=== PATIENT | female | born 1950 | race American Indian/Alaskan Native ===

== ENCOUNTER 2016-07-09 12:30 | Emergency (ER) | payer MEDICARE ==
[2016-07-09 12:56] VITALS: BP 157/78
[2016-07-09 13:13] LABS: Basophils % (Auto) 0.9 % (0.0-1.8); Eosinophils % (Auto) 3.6 % (0.0-4.3); Hematocrit 36.5 % (30.3-42.9); Hemoglobin 11.7 gm/dl (10.1-14.3); Mean Corpuscular HGB Conc 32 % (30-34); Mean Corpuscular Hemoglobin 29 pg (28-32); Mean Corpuscular Volume 90 fl (79-97); Platelet Count 116 K/mm3 (140-440); Red Blood Count 4.05 M/mm3 (3.65-5.03); Red Cell Distribution Width 18.7 % (13.2-15.2); White Blood Count 6.4 K/mm3 (4.5-11.0)
[2016-07-09 13:29] LABS: Albumin 4.2 g/dL (3.9-5); Albumin/Globulin Ratio 1.6 %; BUN/Creatinine Ratio 5.2; Bilirubin,Total 0.3 mg/dL (0.1-1.2); Calcium 9.7 mg/dL (8.4-10.2); Chloride 97.7 mmol/L (98-107); Total Protein 6.8 g/dL (6.3-8.2)
--- NOTE | 2016-07-11 16:46 | ED Elopement Review ---
ED Pt Elopement review - Results review Lab results: Laboratory Tests 07/09/16 07/09/16 07/09/16 12:57 13:00 13:00 WBC 6.4 RBC 4.05 Hgb 11.7 Hct 36.5 MCV 90 MCH 29 MCHC 32 RDW 18.7 H Plt Count 116 L Lymph % (Auto) 16.3 [place] % (Auto) 5.6 Eos % (Auto) 3.6 Baso % (Auto) 0.9 Lymph # 1.0 L [place] # 0.4 Eos # 0.2 Baso # 0.1 Seg Neutrophils % 73.6 H Seg Neutrophils # 4.7 Sodium 139 Potassium 4.0 Chloride 97.7 L Carbon Dioxide 27 Anion Gap 18 BUN 26 H Creatinine 5.0 H Estimated GFR 11 BUN/Creatinine Ratio 5.20 Glucose 115 H POC Glucose 100 Calcium 9.7 Total Bilirubin 0.30 AST 11 ALT 8 Alkaline Phosphatase 82 Total Protein 6.8 Albumin 4.2 Albumin/Globulin Ratio 1.6 Lipase 85 H - Call Back decision Pt Call Back Decision: No action required
== END 2016-07-09 20:43 | disposition left against medical advice (07) ==
LOC: ED 12:30
DX: R19.7 Diarrhea, unspecified (principal); R11.11 Vomiting without nausea; Z53.21 Procedure and treatment not carried out due to patient leaving prior to being seen by health care provider
CPT/HCPCS: 36415; 80053; 82962; 83690; 85025

== ENCOUNTER 2016-07-10 08:18 | Emergency (ER) | payer MEDICARE ==
[2016-07-10 08:47] VITALS: BP 138/69
[2016-07-10 09:25] LABS: Basophils % (Auto) 0.6 % (0.0-1.8); Eosinophils % (Auto) 6.5 % (0.0-4.3); Hemoglobin 12.1 gm/dl (10.1-14.3); Mean Corpuscular HGB Conc 32 % (30-34); Mean Corpuscular Hemoglobin 29 pg (28-32); Mean Corpuscular Volume 91 fl (79-97); Platelet Count 119 K/mm3 (140-440); Red Cell Distribution Width 18.7 % (13.2-15.2); White Blood Count 5.5 K/mm3 (4.5-11.0)
[2016-07-10 09:41] LABS: Albumin 4.2 g/dL (3.9-5); Albumin/Globulin Ratio 1.6 %; BUN/Creatinine Ratio 5.59; Bilirubin,Total 0.3 mg/dL (0.1-1.2); Calcium 9.6 mg/dL (8.4-10.2); Potassium 4.3 mmol/L (3.6-5.0); Total Protein 6.8 g/dL (6.3-8.2)
--- NOTE | 2016-07-11 16:34 | ED Elopement Review ---
ED Pt Elopement review - Results review Lab results: Laboratory Tests 07/10/16 07/10/16 08:51 08:51 WBC 5.5 RBC 4.20 Hgb 12.1 Hct 38.0 MCV 91 MCH 29 MCHC 32 RDW 18.7 H Plt Count 119 L Lymph % (Auto) 16.6 [place] % (Auto) 6.4 Eos % (Auto) 6.5 H Baso % (Auto) 0.6 Lymph # 0.9 L [place] # 0.4 Eos # 0.4 Baso # 0.0 Seg Neutrophils % 69.9 Seg Neutrophils # 3.8 Sodium 137 Potassium 4.3 Chloride 96.0 L Carbon Dioxide 22 Anion Gap 23 BUN 33 H Creatinine 5.9 H Estimated GFR 9 BUN/Creatinine Ratio 5.59 Glucose 121 H Calcium 9.6 Total Bilirubin 0.30 AST 15 ALT 8 Alkaline Phosphatase 84 Total Protein 6.8 Albumin 4.2 Albumin/Globulin Ratio 1.6 Lipase 77 H - Call Back decision Pt Call Back Decision: No action required
== END 2016-07-10 08:52 | disposition left against medical advice (07) ==
LOC: ED 08:18
DX: R10.9 Unspecified abdominal pain (principal); R11.2 Nausea with vomiting, unspecified; R19.7 Diarrhea, unspecified; Z53.21 Procedure and treatment not carried out due to patient leaving prior to being seen by health care provider
CPT/HCPCS: 36415; 80053; 83690; 85025

== ENCOUNTER 2017-02-16 16:22 | Emergency (ER) | payer MEDICARE ==
[2017-02-16 16:31] VITALS: BP 189/85
--- NOTE | 2017-02-16 19:38 | Emergency Department Report ---
ED Fall HPI - General Chief Complaint: Fall Stated Complaint: FALL Time Seen by Provider: 02/16/17 19:36 Source: patient, family Mode of arrival: Wheelchair - Related Data Allergies Allergy/AdvReac Type Severity Reaction Status Date / Time No Known Allergies Allergy Verified 07/10/16 08:46 ED Review of Systems ROS: Stated complaint: FALL Other details as noted in HPI ED Past Medical Hx - Past Medical History Previous Medical History?: Yes Hx Hypertension: Yes Hx Diabetes: Yes Hx GERD: Yes Hx Renal Disease: Yes (tues, thurs, sat) Hx Arthritis: Yes Additional medical history: pt is blind - Surgical History Past Surgical History?: Yes Hx Breast Surgery: Yes (right breast) Additional Surgical History: GRAFT LEFT UPPER ARM. LEFT LOBECTOMY - Social History Smoking Status: Former Smoker Substance Use Type: Prescribed ED Physical Exam - General Limitations: Physical Limitation ED Course Vital Signs 02/16/17 16:24 Temperature 98.9 F Pulse Rate 88 Respiratory 18 Rate Blood Pressure 189/85 O2 Sat by Pulse 99 Oximetry Critical care attestation.: If time is entered above; I have spent that time in minutes in the direct care of this critically ill patient, excluding procedure time. ED Disposition Condition: Stable Referrals: KSENIA PEÑALOZA MD [Primary Care Provider] - 3-5 Days
== END 2017-02-16 19:45 | disposition left against medical advice (07) ==
LOC: ED 16:22
DX: Z53.21 Procedure and treatment not carried out due to patient leaving prior to being seen by health care provider (principal)

== ENCOUNTER 2017-07-21 19:01 | Inpatient (IN) | payer MEDICARE ==
[2017-07-21 20:44] LABS: Basophils % (Auto) 0.4 % (0.0-1.8); Hemoglobin 10.9 gm/dl (10.1-14.3); Lymphocytes # (Auto) 0.5 K/mm3 (1.2-5.4); Lymphocytes % (Auto) 5.2 % (13.4-35.0); Mean Corpuscular HGB Conc 33 % (30-34); Mean Corpuscular Hemoglobin 29 pg (28-32); Mean Corpuscular Volume 87 fl (79-97); Monocytes # (Auto) 0.4 K/mm3 (0.0-0.8); Monocytes % (Auto) 4.5 % (0.0-7.3); Platelet Count 94 K/mm3 (140-440); Red Blood Count 3.79 M/mm3 (3.65-5.03); Red Cell Distribution Width 16.1 % (13.2-15.2)
[2017-07-21 20:45] LABS: Eosinophils # (Auto) 0.4 K/mm3 (0.0-0.4)
--- NOTE | 2017-07-21 20:56 | XRay Report ---
FINAL REPORT EXAM: XR CHEST ROUTINE 2V HISTORY: Shortness of breath TECHNIQUE: Two views of the chest Comparison: None FINDINGS: Exam is motion degraded. Heart size is enlarged. There is bilateral pulmonary vascular congestion and patchy bilateral infiltrates. There fluid in the fissures. Subtle layering effusions may be present. There are right axillary clips. IMPRESSION: Findings suggest congestive heart failure/positive fluid balance but superimposed infiltrate cannot be excluded. Right axillary clips.
[2017-07-21 20:59] LABS: Calcium 9.1 mg/dL (8.4-10.2)
[2017-07-21] MEDS ORDERED: ZOFRAN ODT PO ONE (21:20)
[2017-07-21] MEDS ORDERED: ZOFRAN ODT ONE (21:22)
--- NOTE | 2017-07-22 00:18 | Emergency Department Report ---
ED General Adult HPI - General Chief complaint: Dyspnea/Respdistress Stated complaint: TROUBLE BREATHING Time Seen by Provider: 07/22/17 00:07 Source: family Mode of arrival: Wheelchair Limitations: No Limitations - History of Present Illness Initial comments: Patient is 67-year-old female history of end-stage renal disease on hemodialysis , she finished her dialysis today, history of diabetes and hypertension. Patient presented to the ER complaining off fever cough and shortness of breath started today. Patient vomited twice. Patient is legally blind. - Related Data Allergies Allergy/AdvReac Type Severity Reaction Status Date / Time No Known Allergies Allergy Verified 07/10/16 08:46 ED Review of Systems ROS: Stated complaint: TROUBLE BREATHING Other details as noted in HPI Comment: All other systems reviewed and negative Constitutional: chills, fever Respiratory: cough, shortness of breath. denies: SOB with exertion, SOB at rest , wheezing Gastrointestinal: nausea, vomiting. denies: abdominal pain, diarrhea, constipation, hematemesis Neurological: denies: headache, weakness, numbness, paresthesias, confusion ED Past Medical Hx - Past Medical History Hx Hypertension: Yes Hx Diabetes: Yes Hx GERD: Yes Hx Renal Disease: Yes (tues, thurs, sat) Hx Arthritis: Yes Additional medical history: pt is blind - Surgical History Hx Breast Surgery: Yes (right breast) Additional Surgical History: GRAFT LEFT UPPER ARM. LEFT LOBECTOMY - Social History Smoking Status: Never Smoker ED Physical Exam - General Limitations: No Limitations General appearance: alert, in no apparent distress - Head Head exam: Present: atraumatic, normocephalic, normal inspection - Eye Eye exam: Present: normal appearance - ENT ENT exam: Present: normal exam, mucous membranes moist - Neck Neck exam: Present: normal inspection, full ROM. Absent: tenderness, meningismus - Respiratory Respiratory exam: Present: rales (bilateral lower lobe), decreased breath sounds. Absent: respiratory distress, rhonchi, stridor - Cardiovascular Cardiovascular Exam: Present: regular rate, normal rhythm, normal heart sounds - GI/Abdominal GI/Abdominal exam: Present: soft, normal bowel sounds. Absent: distended, tenderness, guarding, rebound, rigid, organomegaly, mass, bruit, pulsatile mass , hernia - Extremities Exam Extremities exam: Present: normal inspection, full ROM, normal capillary refill - Back Exam Back exam: Present: normal inspection, full ROM. Absent: tenderness, CVA tenderness (R), CVA tenderness (L), muscle spasm, paraspinal tenderness, vertebral tenderness - Neurological Exam Neurological exam: Present: alert, oriented X3, CN II-XII intact, normal gait - Skin Skin exam: Present: warm, intact, normal color ED Course Vital Signs 07/21/17 19:08 Temperature 99.0 F Pulse Rate 78 Blood Pressure 153/72 - Reevaluation(s) Reevaluation #1: 07/22/17 00:33 I discussed the patient is Dr. Son, he advised he will follow-up with the patient in the hospital ED Medical Decision Making - Lab Data Result diagrams: 07/21/17 20:23 07/21/17 20:23 - Radiology Data Radiology results: report reviewed Referring Physician: CURT HAAS Patient Name: JEZ GRAHAM Date of : 1950 Sex: Female Report Date: 2017-07-21 Report Status: [place] [address] XRay Report Signed Patient: JEZ GRAHAM MR#: [id number] : 1950 Acct:[id number] Age/Sex: 67 / F ADM Date: 07/21/17 Loc: ED Attending Dr: Ordering Physician: CURT HAAS MD Date of Service: 07/21/17 Procedure(s): XR chest routine 2V Accession Number(s): [id number] cc: CURT HAAS MD Fluoro Time In Minutes: FINAL REPORT EXAM: XR CHEST ROUTINE 2V HISTORY: Shortness of breath TECHNIQUE: Two views of the chest Comparison: None FINDINGS: Exam is motion degraded. Heart size is enlarged. There is bilateral pulmonary vascular congestion and patchy bilateral infiltrates. There fluid in the fissures. Subtle layering effusions may be present. There are right axillary clips. IMPRESSION: Findings suggest congestive heart failure/positive fluid balance but superimposed infiltrate cannot be excluded. Right axillary clips. Transcribed By: KE Dictated By: VALE PEARCE Electronically Authenticated By: VALE PEARCE Signed Date/Time: 07/21/172050 DD/ 50 TD/TT: 07/21/172050 - Medical Decision Making I discussed the patient is Dr. Tg Cherry, she agreed to admit to her service. Critical care attestation.: If time is entered above; I have spent that time in minutes in the direct care of this critically ill patient, excluding procedure time. ED Disposition Clinical Impression: Pneumonia of both lower lobes, End-stage renal disease on hemodialysis, Diabetes mellitus Disposition: OP ADMIT IP TO THIS HOSP Is pt being admited?: Yes Condition: Stable Instructions: Diabetes Mellitus Type 2 in Adults (ED), Bacterial Pneumonia (ED) Referrals: PRIMARY CARE, [Primary Care Provider] - 3-5 Days
[2017-07-22] MEDS ORDERED: ZOFRAN IV ONE (00:19)
[2017-07-22] MEDS ORDERED: LEVAQUIN 500MG/100ML 500 MG/100 ML BAG IV ONE (00:19)
[2017-07-22] MEDS ORDERED: ZOFRAN ONE (02:30)
[2017-07-22] MEDS ORDERED: TYLENOL PO PRN (03:05)
[2017-07-22] MEDS ORDERED: ZOFRAN IV PRN (03:05)
[2017-07-22] MEDS ORDERED: SODIUM CHLORIDE FLUSH SYRINGE 10 ML IV PRN (03:05)
--- NOTE | 2017-07-22 03:13 | History and Physical Report ---
History of Present Illness Date of examination: 07/22/17 History of present illness: 67-year-old woman with a history of hypertension, diabetes, end-stage renal disease on dialysis since emergency room with complaints of cough productive of yellow phlegm, shortness breath, chills Review of systems Constitutional: no weight loss, chills Ears, eyes, nose, mouth and throat: no nasal congestion, no nasal discharge, no sinus pressure, no vision change, no red eye. Neck: No neck pain or rigidity. Cardiovascular: no chest pain, palpitations Respiratory:+ cough, shortness of breath Gastrointestinal: no abdominal pain, hematochezia Genitourinary : no dysuria, frequency , no hematuria Musculoskeletal: no joint swelling or muscle ache Integumentary: no rash, no pruritis Neurological: no parathesias, no numbness, no focal weakness Endocrine: no cold or heat intolerance, no polyuria or polydipsia Hematologic/Lymphatic: no easy bruising, no easy bleeding, no gland swelling Allergic/Immunologic: no urticaria, no angioedema. PAST MEDICAL HISTORY:hypertension, diabetes, end-stage renal disease PAST SURGICAL HISTORY: AV fistula SOCIAL HISTORY: Denies alcohol, tobacco, drugs FAMILY HISTORY: Hypertension Medications and Allergies Allergies Allergy/AdvReac Type Severity Reaction Status Date / Time No Known Allergies Allergy Verified 07/10/16 08:46 Home Medications Medication Instructions Recorded Confirmed Last Taken Type Aspirin 81 mg QDAY 07/22/17 07/22/17 1 Day Ago History ~07/21/17 Calcitriol [Rocaltrol] 0.25 mcg PO QDAY 07/22/17 07/22/17 1 Day Ago History ~07/21/17 Calcium 600-Vit D3 800 Caplet 1 tab QDAY 07/22/17 07/22/17 1 Day Ago History ~07/21/17 Darbepoetin Mike in Polysorbat 60 mcg IJ 1XW 07/22/17 07/22/17 1 Day Ago History ~07/21/17 Esomeprazole Magnesium [Nexium 20 mg PO QDAY 07/22/17 07/22/17 1 Day Ago History 24Hr] ~07/21/17 Gabapentin [Neurontin] 300 mg PO QHS 07/22/17 07/22/17 2 Days Ago History ~07/20/17 Letrozole (Nf) [Femara (Nf)] 2.5 mg PO QDAY 07/22/17 07/22/17 1 Day Ago History ~07/21/17 Lisinopril [Zestril] 40 mg PO QDAY 07/22/17 07/22/17 1 Day Ago History ~07/21/17 Mirtazapine [Remeron] 30 mg PO QHS 07/22/17 07/22/17 2 Days Ago History ~07/20/17 Ondansetron [Zofran TAB] 4 mg PO QDAY PRN 07/22/17 07/22/17 2 Days Ago History ~07/20/17 amLODIPine 10 mg QDAY 07/22/17 07/22/17 1 Day Ago History ~07/21/17 hydrALAZINE 100 mg Q8HR 07/22/17 07/22/17 1 Day Ago History ~07/21/17 Exam - Physical Exam Narrative exam: Gen. appearance: Patient lying in bed, no apparent distress HEENT: Normocephalic, atraumatic, pupils equally round and reactive to light, extraocular movement intact, and no sclericterus,. No JVD or thyromegaly or nodule,neck supple, no carotid bruit ,mucous membranes moist, no exudate or erythema Heart: S1, S2, regular rate and rhythm Lungs: Crackles bilaterally, breathing comfortable Abdomen: Positive bowel sounds, nontender, nondistended, no organomegaly Extremity: No edema, cyanosis, clubbing Skin: No rash, nodules, warm, dry Neuro: Oriented 3, cranial nerves II-12 intact, speech is fluent, motor and sensory intact - Constitutional Vitals: Temp Pulse Resp BP Pulse Ox 97.9 F 69 20 172/75 94 07/22/17 02:44 07/22/17 02:36 07/22/17 02:36 07/22/17 02:36 07/22/17 02:36 Results - Labs CBC & Chem 7: 07/21/17 20:23 07/21/17 20:23 Labs: Abnormal lab results 07/21/17 07/21/17 Range/Units 20:23 20:23 RDW 16.1 H (13.2-15.2) % Plt Count 94 L (140-440) K/mm3 Lymph % (Auto) 5.2 L (13.4-35.0) % Lymph # 0.5 L (1.2-5.4) K/mm3 Seg Neutrophils % 85.9 H (40.0-70.0) % Seg Neutrophils # 8.4 H (1.8-7.7) K/mm3 Sodium 132 L (137-145) mmol/L Chloride 93.3 L (98-107) mmol/L BUN 19 H (7-17) mg/dL Creatinine 2.8 H (0.7-1.2) mg/dL Glucose 168 H (65-100) mg/dL - Imaging and Cardiology EKG: image reviewed Chest x-ray: image reviewed Assessment and Plan Assessment Community acquired pneumonia End-stage renal disease on dialysis Hypertension Plan Admit to medicine Start IV Levaquin, follow cultures Consult renal Continue appropriate outpatient medications DVT prophylaxis
--- NOTE | 2017-07-22 09:08 | Consultation ---
History of Present Illness - Reason for Consult Consult date: 07/22/17 end stage renal disease - History of Present Illness The patient is a 67 YO AAF with medical history significant for Hypertension, Diabetes mellitus, bilateral blindness, Anemia and ESRD on hemodialysis (TTS) who came to the ER with complaints of cough productive of yellow phlegm, shortness breath and chills. Patient is a very poor historian and unable to get a detailed history. She could neither tell me the name of her outpatient dialysis unit nor the name of her Outside Sales Account Manager. Unable to reach the family at this time. She was last dialyzed yesterday. Patient was admitted with suspected pneumonia. She is feeling better today. Past History Past Medical History: anemia, diabetes, dialysis, ESRD, hypertension, other ( legally blind) Medications and Allergies Allergies Allergy/AdvReac Type Severity Reaction Status Date / Time No Known Allergies Allergy Verified 07/10/16 08:46 Home Medications Medication Instructions Recorded Confirmed Last Taken Type Aspirin 81 mg QDAY 07/22/17 07/22/17 1 Day Ago History ~07/21/17 Calcitriol [Rocaltrol] 0.25 mcg PO QDAY 07/22/17 07/22/17 1 Day Ago History ~07/21/17 Calcium 600-Vit D3 800 Cap[place] 1 tab QDAY 07/22/17 07/22/17 1 Day Ago History ~07/21/17 Darbepoetin Mike in Polysorbat 60 mcg IJ 1XW 07/22/17 07/22/17 1 Day Ago History ~07/21/17 Esomeprazole Magnesium [Nexium 20 mg PO QDAY 07/22/17 07/22/17 1 Day Ago History 24Hr] ~07/21/17 Gabapentin [Neurontin] 300 mg PO QHS 07/22/17 07/22/17 2 Days Ago History ~07/20/17 Letrozole (Nf) [Femara (Nf)] 2.5 mg PO QDAY 07/22/17 07/22/17 1 Day Ago History ~07/21/17 Lisinopril [Zestril] 40 mg PO QDAY 07/22/17 07/22/17 1 Day Ago History ~07/21/17 Mirtazapine [Remeron] 30 mg PO QHS 07/22/17 07/22/17 2 Days Ago History ~07/20/17 Ondansetron [Zofran TAB] 4 mg PO QDAY PRN 07/22/17 07/22/17 2 Days Ago History ~07/20/17 amLODIPine 10 mg QDAY 07/22/17 07/22/17 1 Day Ago History ~07/21/17 hydrALAZINE 100 mg Q8HR 07/22/17 07/22/17 1 Day Ago History ~07/21/17 Active Meds: Active Medications Acetaminophen (Tylenol) 650 mg PO Q4H PRN PRN Reason: Pain MILD(1-3)/Fever >100.5/NIXON Amlodipine Besylate (Norvasc) 10 mg PO QDAY ROMIE Aspirin (Baby Aspirin) 81 mg PO QDAY ROMIE Calcitriol (Rocaltrol) 0.25 mcg PO QDAY ROMIE Gabapentin (Neurontin) 300 mg PO QHS ROMIE Levofloxacin/Dextrose (Levaquin 250mg/50ml) 250 mg in 50 mls @ 50 mls/hr IV DAILY ONE Stop: 07/22/17 10:59 Lisinopril (Zestril) 40 mg PO QDAY ROMIE Mirtazapine (Remeron) 30 mg PO QHS ROMIE Ondansetron HCl (Zofran) 4 mg IV Q8H PRN PRN Reason: Nausea And Vomiting Pantoprazole Sodium (Protonix) 20 mg PO QDAY ROMIE Sodium Chloride (Sodium Chloride Flush Syringe 10 Ml) 10 ml IV BID ROMIE Sodium Chloride (Sodium Chloride Flush Syringe 10 Ml) 10 ml IV PRN PRN PRN Reason: LINE FLUSH Review of Systems ROS unobtainable: due to mental status Exam - Vital Signs Vital signs: Vital Signs Temp Pulse BP 99.0 F 78 153/72 07/21/17 19:08 07/21/17 19:08 07/21/17 19:08 - General Appearance General appearance: well-developed, well-nourished, appears stated age, other ( no distress) EENT: ATNC, hearing intact, other Neck: Present: neck supple, trachea midline Respiratory: Clear to Ascultation Heart: regular, S1S2, no murmurs Gastrointestinal: Present: normoactive bowel sounds. Absent: tenderness, distended Integumentary: no rash, warm and dry Neurologic: no asterixis, disoriented, other (bilateral blindness) Musculoskeletal: Present: other (no edema, left arm AVF) Psychiatric: mood/affect appropriate, cooperative Results - Lab Results 07/21/17 20:23 07/21/17 20:23 Most recent lab results Calcium 9.1 mg/dL (8.4-10.2) 07/21/17 20:23 Assessment and Plan 1. ESRD: Continue hemodialysis three times a week, TTS schedule. 2. Anemia: Monitor. 3. Hypertension: BP well controlled. 4. Pneumonia.
[2017-07-22] MEDS ORDERED: LEVAQUIN 250MG/50ML 250 MG/50 ML BAG IV ONE (10:00)
[2017-07-22] MEDS ORDERED: LOVENOX SUB-Q SCH (10:00)
[2017-07-22] MEDS: PROTONIX PO SCH (11:45)
[2017-07-22] MEDS: BABY ASPIRIN PO SCH (11:46)
[2017-07-22] MEDS: ROCALTROL PO SCH (11:47)
[2017-07-22] MEDS ORDERED: ZOFRAN ODT PO STA (12:36)
[2017-07-22] MEDS: NORVASC PO SCH (12:46)
[2017-07-22] MEDS: ZESTRIL PO SCH (12:46)
[2017-07-22] MEDS: SODIUM CHLORIDE FLUSH SYRINGE 10 ML IV SCH ×2 (12:58→22:03)
--- NOTE | 2017-07-22 16:40 | Event Note ---
Date: 07/22/17 Patient seen and examined medical records reviewed Admitted this morning worsening shortness of breath Case of end-stage renal disease on hemodialysis per schedule Nephrology evaluates the patient, medical records reviewed Agree with the current management Closely monitor the patient and adjust management as needed Plan of care is reviewed with the patient and her nurse
[2017-07-22] MEDS ORDERED: PERCOCET 5/325 PO PRN (19:20)
[2017-07-22] MEDS: REMERON PO SCH (21:56)
[2017-07-22] MEDS: NEURONTIN PO SCH (21:56)
[2017-07-23] MEDS ORDERED: DUONEB *Not for PRN Use IH ONE ×2 (02:56)
[2017-07-23] MEDS ORDERED: APRESOLINE ONE (02:59)
[2017-07-23] MEDS: APRESOLINE IV PRN ×2 (03:05→03:12)
--- NOTE | 2017-07-23 03:23 | Event Note ---
Date: 07/23/17 Code MEt called Patient mask was off, she is diaphoretic, short of breath ABG obtained was reviewed Obtain a chest x-ray, which was reviewed Chest x-ray shows pneumonia plus fluid Place on BiPAP, breathing treatment given Will repeat abg Blood pressure in the 200s, give IV hydralazine Repeat labs now The high probability of a clinically significant sudden or life-threatening deterioration of the [cardiac, respiratory, renal] system(s) required my full and direct attention, intervention and personal management. The aggregate critical care time was [35 ] minutes. This time is in addition to the time spent performing reported procedures but including [ X] Data review and interpretation [ X] Patient assessment and monitoring of vital signs [ X ] Documentation [X] Medication orders and management
[2017-07-23 04:24] LABS: Hematocrit 33.9 % (30.3-42.9); Hemoglobin 11.2 gm/dl (10.1-14.3); Mean Corpuscular HGB Conc 33 % (30-34); Mean Corpuscular Hemoglobin 29 pg (28-32); Mean Corpuscular Volume 87 fl (79-97); Red Blood Count 3.88 M/mm3 (3.65-5.03); Red Cell Distribution Width 15.8 % (13.2-15.2)
[2017-07-23 04:27] LABS: Platelet Count 69 K/mm3 (140-440)
[2017-07-23 04:28] LABS: Calcium 9.4 mg/dL (8.4-10.2)
--- NOTE | 2017-07-23 04:55 | XRay Report ---
FINAL REPORT PROCEDURE: XR CHEST 1V AP TECHNIQUE: Chest radiograph anteroposterior view. CPT 75103 HISTORY: sob COMPARISON: 07/21/2017 FINDINGS: Heart: Normal. Mediastinum/Vessels: Normal. Lungs/Pleural space: Scattered increased densities identified in both lungs. Multiple areas of infiltrate are suspected.. Bony thorax: No acute osseous abnormality. Life support devices: None. IMPRESSION: Scattered increased infiltrates bilateral lungs..
[2017-07-23] MEDS ORDERED: NACL 0.9% 100 ML IV PRN (08:00)
--- NOTE | 2017-07-23 08:00 | Progress Note ---
Assessment and Plan 1. ESRD: Continue hemodialysis three times a week, TTS schedule. Hemodialysis today 2. Suspected volume overload: 3 Lts of UF with HD today as tolerated. 3. Anemia: Monitor. 4. Hypertension: Monitor. 5. Pneumonia. Subjective Date of service: 07/23/17 Interval history: Patient was seen and examined at the bedside. Objective - Vital Signs Vital signs: Vital Signs - 12hr 07/22/17 07/22/17 07/22/17 20:01 20:52 21:57 Temperature 98.8 F Pulse Rate 61 Respiratory 18 20 Rate Respiratory Rate [Medial Back] Blood Pressure 149/64 O2 Sat by Pulse 94 99 Oximetry 07/22/17 07/22/17 07/23/17 22:00 22:45 02:42 Temperature Pulse Rate Respiratory 20 20 Rate Respiratory 20 Rate [Medial Back] Blood Pressure 214/95 O2 Sat by Pulse 94 Oximetry 07/23/17 07/23/17 07/23/17 02:51 03:08 03:11 Temperature Pulse Rate 86 81 74 Respiratory 24 Rate Respiratory Rate [Medial Back] Blood Pressure 233/95 209/82 182/83 O2 Sat by Pulse 92 86 99 Oximetry 07/23/17 07/23/17 07/23/17 03:20 03:28 03:50 Temperature 97.3 F L Pulse Rate 73 69 68 Respiratory 24 18 20 Rate Respiratory Rate [Medial Back] Blood Pressure 177/70 166/67 O2 Sat by Pulse 95 96 97 Oximetry 07/23/17 06:01 Temperature Pulse Rate 67 Respiratory 20 Rate Respiratory Rate [Medial Back] Blood Pressure 155/59 O2 Sat by Pulse 97 Oximetry - General Appearance General appearance: well-developed, appears stated age, other (on CPAP / BIPAP) EENT: ATNC Neck: supple Respiratory: Present: Clear to Ascultation Cardiology: regular, S1S2, no murmurs Gastrointestinal: normoactive bowel sounds, no tenderness Integumentary: no rash, warm and dry Neurologic: other (sleeping, arousable) Musculoskeletal: other (no edema, left arm AVF) - Lab 07/23/17 03:39 07/23/17 03:39 Most recent lab results Calcium 9.4 mg/dL (8.4-10.2) 07/23/17 03:39
[2017-07-23] MEDS ORDERED: NACL 0.9 (PRIMING MACHINE ONLY DIALYSIS) MC ONE ×2 (11:49)
[2017-07-23 13:34] LABS: Hepatitis A Antibody IgM Non-Reactive (NonReactive); Hepatitis B Core IgM Non-Reactive (NonReactive); Hepatitis B Surface Antigen Non-Reactive (Negative); Hepatitis C Virus Antibody Non-Reactive (NonReactive)
[2017-07-23] MEDS: NORVASC PO SCH (14:34)
[2017-07-23] MEDS: ROCALTROL PO SCH (14:34)
[2017-07-23] MEDS: SODIUM CHLORIDE FLUSH SYRINGE 10 ML IV SCH ×2 (14:35→22:02)
[2017-07-23] MEDS: BABY ASPIRIN PO SCH (14:35)
[2017-07-23] MEDS: ZESTRIL PO SCH (14:35)
[2017-07-23] MEDS: PROTONIX PO SCH (14:42)
--- NOTE | 2017-07-23 16:16 | Discharge Summary ---
Providers - Providers Date of Admission: 07/22/17 03:05 Date of discharge: 07/28/17 Attending physician: JUDI ESPARZA 07/22/17 00:31 Consult to Physician [CONS] Urgent Comment: Consulting Provider: ELLEN BREWER Physician Instructions: Reason For Exam: end stage renal disease on hemodialysis Primary care physician: FREIGHT HUSTLER Hospitalization Reason for admission: worsening shortness of breath, productive cough Condition: Stable Pertinent studies: Chest x-ray; scattered increased infiltrates bilateral, probably pulmonary edema fluid overload secondary to end-stage renal disease Chest x-ray; findings suggest congestive heart failure superimposed infiltrate cannot be excluded Procedures: HD per schedule Hospital course: 67-year-old -[place] female patient with multiple medical problems with hypertension diabetes and end-stage renal disease on hemodialysis legally blind but was admitted through emergency room with worsening shortness of breath and productive cough Patient was initially evaluated noted to have acute bronchitis and questionable infiltrate Admitted to the hospital symptomatically managed, started on antibiotics, renal evaluated the patient, patient received hemodialysis as scheduled With mild improvement of the symptoms Throughout the hospital stay patient did not have any fever or leukocytosis Patient is hemodynamically, And clinically stable Patient received Levaquin in the hospital stay and we will be discharging her on Z-Julianna Again patient is afebrile, no elevation of WBC, cultures are negative to date, hemodynamically and clinically stable for discharge Nephrology cleared, and advised follow-up HD per schedule /Thursday and Thursday Discharge diagnosis; --Acute bronchitis/pneumonitis --Fluid overload --Possible CAP --End-stage renal disease on hemodialysis --Hypertension --Legally blind Disposition: TO HOME OR SELFCARE Time spent for discharge: 32 min Core Measure Documentation - Palliative Care Palliative Care/ Comfort Measures: Not Applicable - Core Measures Any of the following diagnoses?: none Exam - Constitutional Vitals: Temp Pulse Resp BP Pulse Ox 97.9 F 61 20 161/65 97 07/23/17 13:15 07/23/17 13:15 07/23/17 13:15 07/23/17 14:35 07/23/17 13:15 General appearance: Present: no acute distress, well-nourished, other (legally blind) - EENT Eyes: Present: PERRL, EOM intact - Neck Neck: Present: supple, normal ROM - Respiratory Respiratory effort: normal Respiratory: bilateral: diminished, negative: rales, rhonchi, wheezing - Cardiovascular Rhythm: regular Heart Sounds: Present: S1 & S2 - Extremities Extremities: no ischemia, No edema Peripheral Pulses: within normal limits - Abdominal General gastrointestinal: Present: soft, non-tender, normal bowel sounds - Integumentary Integumentary: Present: clear, warm - Musculoskeletal Musculoskeletal: strength equal bilaterally - Psychiatric Psychiatric: appropriate mood/affect, cooperative - Neurologic Neurologic: moves all extremities Plan Activity: advance as tolerated, fall precautions Diet: renal Additional Instructions: Follow up with renal/HD per schedule TTS. Strongly advised to comply with medications , diet ,dialysis and follow-up visits. Advised fall precautions Follow up with: PRIMARY CARE, [Primary Care Provider] - 3-5 Days ELLEN BREWER MD [Staff Physician] - 7 Days Prescriptions: Azithromycin [Zithromax Z-JULIANNA] 0 mg PO DAILY #1 tab
--- NOTE | 2017-07-23 18:57 | Progress Note ---
Assessment and Plan Assessment and plan: --End Stage renal disease on hemodialysis; HD per schedule, nephrology following --Acute hypoxic respiratory failure, continue oxygen titrate O2 sats to 90% Nebulizers, IV steroids, IV antibiotics --Community-acquired pneumonia; IV Levaquin, renal dose Cough medicine as needed, supportive care --Hypertension; moderate control, continue current antihypertensives and when necessary medications --DC planning case management, home O2 evaluation Possible home with home health when medically stable Plan of care reviewed with the patient and the family member at the bedside History Interval history: Patient seen and examined medical records reviewed Received hemodialysis today Cleared by nephrology, patient was hemodynamically stable Initially planned to discharge today however Patient has spasmodic cough. He has O2 sats dropped Oxygen was given and patient feels much better Alert awake: Oriented 3 Vital signs reviewed Hospitalist Physical - Constitutional Vitals: Temp Pulse Resp BP Pulse Ox 97.9 F 61 20 161/65 97 07/23/17 13:15 07/23/17 13:15 07/23/17 13:15 07/23/17 14:35 07/23/17 13:15 General appearance: Present: no acute distress, well-nourished, other (legally blind) - EENT Eyes: Present: PERRL, EOM intact - Neck Neck: Present: supple, normal ROM - Respiratory Respiratory effort: normal Respiratory: bilateral: diminished, negative: rales, rhonchi, wheezing - Cardiovascular Rhythm: regular Heart Sounds: Present: S1 & S2 - Extremities Extremities: no ischemia, No edema - Abdominal General gastrointestinal: soft, non-tender, non-distended, normal bowel sounds - Integumentary Integumentary: Present: clear, warm - Psychiatric Psychiatric: appropriate mood/affect, cooperative - Neurologic Neurologic: moves all extremities Results - Labs CBC & Chem 7: 07/23/17 03:39 07/23/17 03:39 Labs: Laboratory Last Values WBC 9.7 K/mm3 (4.5-11.0) 07/23/17 03:39 RBC 3.88 M/mm3 (3.65-5.03) 07/23/17 03:39 Hgb 11.2 gm/dl (10.1-14.3) 07/23/17 03:39 Hct 33.9 % (30.3-42.9) 07/23/17 03:39 MCV 87 fl (79-97) 07/23/17 03:39 MCH 29 pg (28-32) 07/23/17 03:39 MCHC 33 % (30-34) 07/23/17 03:39 RDW 15.8 % (13.2-15.2) H 07/23/17 03:39 Plt Count 69 K/mm3 (140-440) L 07/23/17 03:39 Lymph % (Auto) Parasitology Teacher 07/23/17 03:39 [place] % (Auto) Parasitology Teacher 07/23/17 03:39 Eos % (Auto) Parasitology Teacher 07/23/17 03:39 Baso % (Auto) Parasitology Teacher 07/23/17 03:39 Lymph # Parasitology Teacher 07/23/17 03:39 [place] # Parasitology Teacher 07/23/17 03:39 Eos # Parasitology Teacher 07/23/17 03:39 Baso # Parasitology Teacher 07/23/17 03:39 Seg Neutrophils % Parasitology Teacher 07/23/17 03:39 Seg Neutrophils # Parasitology Teacher 07/23/17 03:39 POC ABG pH 7.398 (7.35-7.45) 07/23/17 04:08 POC ABG pCO2 43.5 (35-45) 07/23/17 04:08 POC ABG pO2 74 (80-105) L 07/23/17 04:08 POC ABG HCO3 26.9 07/23/17 04:08 POC ABG Total CO2 28 07/23/17 04:08 POC ABG O2 Sat 95 07/23/17 04:08 POC ABG Base Excess 2 07/23/17 04:08 FiO2 50 % 07/23/17 04:08 Sodium 131 mmol/L (137-145) L 07/23/17 03:39 Potassium 4.2 mmol/L (3.6-5.0) 07/23/17 03:39 Chloride 95.3 mmol/L (98-107) L 07/23/17 03:39 Carbon Dioxide 25 mmol/L (22-30) 07/23/17 03:39 Anion Gap 15 mmol/L 07/23/17 03:39 BUN 32 mg/dL (7-17) H 07/23/17 03:39 Creatinine 4.6 mg/dL (0.7-1.2) H D 07/23/17 03:39 Estimated GFR 12 ml/min 07/23/17 03:39 BUN/Creatinine Ratio 7 % 07/23/17 03:39 Glucose 173 mg/dL (65-100) H 07/23/17 03:39 POC Glucose 164 (70-105) H 07/23/17 02:54 Calcium 9.4 mg/dL (8.4-10.2) 07/23/17 03:39 Hepatitis A IgM Ab Non-reactive (NonReactive) 07/23/17 09:50 Hep Bs Antigen Non-reactive (Negative) 07/23/17 09:50 Hep B Core IgM Ab Non-reactive (NonReactive) 07/23/17 09:50 Hepatitis C Antibody Non-reactive (NonReactive) 07/23/17 09:50
[2017-07-23] MEDS: PROVENTIL IH SCH (21:22)
[2017-07-23] MEDS: REMERON PO SCH (22:02)
[2017-07-23] MEDS: NEURONTIN PO SCH (22:02)
[2017-07-24] MEDS: APRESOLINE IV PRN (02:37)
[2017-07-24 06:40] LABS: Basophils % (Auto) 0.8 % (0.0-1.8); Eosinophils # (Auto) 0.4 K/mm3 (0.0-0.4); Eosinophils % (Auto) 7.5 % (0.0-4.3); Hematocrit 33.3 % (30.3-42.9); Hemoglobin 10.7 gm/dl (10.1-14.3); Lymphocytes # (Auto) 0.8 K/mm3 (1.2-5.4); Lymphocytes % (Auto) 15.9 % (13.4-35.0); Mean Corpuscular HGB Conc 32 % (30-34); Mean Corpuscular Hemoglobin 28 pg (28-32); Mean Corpuscular Volume 87 fl (79-97); Monocytes # (Auto) 0.3 K/mm3 (0.0-0.8); Monocytes % (Auto) 5.1 % (0.0-7.3); Platelet Count 111 K/mm3 (140-440); Red Blood Count 3.82 M/mm3 (3.65-5.03); Red Cell Distribution Width 16.2 % (13.2-15.2)
[2017-07-24 06:42] LABS: Calcium 9.6 mg/dL (8.4-10.2)
[2017-07-24] MEDS: PROVENTIL IH SCH ×4 (07:20→21:56)
--- NOTE | 2017-07-24 08:43 | Progress Note ---
Assessment and Plan 1. ESRD: Continue hemodialysis three times a week, TTS schedule. Next hemodialysis tomorrow. 2. Anemia: Monitor. 3. Hypertension: Monitor. 4. Pneumonia. Subjective Date of service: 07/24/17 Interval history: Patient was seen and examined at the bedside. Objective - Vital Signs Vital signs: Vital Signs - 12hr 07/23/17 07/23/17 07/23/17 21:11 21:24 22:00 Pulse Rate [ 64 Apical] Pulse Rate [ 65 Posterior Bilateral Throughout] Respiratory 17 Rate Respiratory 14 Rate [Posterior Bilateral Throughout] Blood Pressure O2 Sat by Pulse 87 100 100 Oximetry 07/24/17 02:37 Pulse Rate [ Apical] Pulse Rate [ Posterior Bilateral Throughout] Respiratory Rate Respiratory Rate [Posterior Bilateral Throughout] Blood Pressure 183/79 O2 Sat by Pulse Oximetry - General Appearance General appearance: well-developed, well-nourished, appears stated age, other ( no distress) EENT: ATNC, mucous membranes moist, hearing intact Neck: supple Respiratory: Present: Clear to Ascultation Cardiology: regular, S1S2 Gastrointestinal: normoactive bowel sounds, no tenderness Integumentary: no rash, warm and dry Neurologic: no asterixis, other (bilateral blindness) Musculoskeletal: other (no edema, left arm AVF) - Lab 07/24/17 05:07 07/24/17 05:07 Most recent lab results Calcium 9.6 mg/dL (8.4-10.2) 07/24/17 05:07
[2017-07-24] MEDS: ROCALTROL PO SCH (09:39)
[2017-07-24] MEDS: NORVASC PO SCH (09:40)
[2017-07-24] MEDS: PROTONIX PO SCH (09:40)
[2017-07-24] MEDS: ZESTRIL PO SCH (09:40)
[2017-07-24] MEDS: BABY ASPIRIN PO SCH (09:41)
[2017-07-24] MEDS: SODIUM CHLORIDE FLUSH SYRINGE 10 ML IV SCH ×2 (09:41→21:00)
[2017-07-24] MEDS: LEVAQUIN 250MG/50ML 250 MG/50 ML BAG IV SCH (09:41)
[2017-07-24] MEDS ORDERED: GUAIFENESIN DM SYRUP PO PRN (09:51)
--- NOTE | 2017-07-24 20:13 | Progress Note ---
Assessment and Plan Assessment and plan: --Acute hypoxic respiratory failure; Continue oxygen titrated O2 sats more than 90%, nebulizers Supportive care, IV antibiotics --Community-acquired pneumonia; continue Levaquin renal dose, supportive care Follow cultures, negative for date --End-stage renal disease; on hemodialysis Nephrology following, HB per schedule --Hypertension; moderate control, continue current antihypertensives and when necessary medications --DC planning case management, home O2 evaluation Possible home with home health when medically stable 1-2 days Plan of care reviewed with the patient and the family member at the bedside Reviewed the plan of care with the patient's nurse History Interval history: Patient seen and evaluated medical records reviewed Patient remains hypoxic requiring oxygen Complains of shortness of breath and cough Alert awake oriented 3 Vital signs reviewed Hospitalist Physical - Constitutional Vitals: Temp Pulse Resp BP Pulse Ox 99.2 F 66 18 168/71 95 07/24/17 13:01 07/24/17 13:40 07/24/17 13:40 07/24/17 13:01 07/24/17 13:01 General appearance: Present: no acute distress, well-nourished, other (legally blind) - EENT Eyes: Present: PERRL, EOM intact - Neck Neck: Present: supple, normal ROM - Respiratory Respiratory effort: normal Respiratory: bilateral: diminished, rhonchi, negative: rales, wheezing - Cardiovascular Rhythm: regular Heart Sounds: Present: S1 & S2 - Extremities Extremities: no ischemia, No edema - Abdominal General gastrointestinal: soft, non-tender, non-distended, normal bowel sounds - Integumentary Integumentary: Present: clear, warm - Psychiatric Psychiatric: appropriate mood/affect, cooperative - Neurologic Neurologic: moves all extremities (Legally blind) Results - Labs CBC & Chem 7: 07/24/17 05:07 07/24/17 05:07 Labs: Laboratory Last Values WBC 5.2 K/mm3 (4.5-11.0) 07/24/17 05:07 RBC 3.82 M/mm3 (3.65-5.03) 07/24/17 05:07 Hgb 10.7 gm/dl (10.1-14.3) 07/24/17 05:07 Hct 33.3 % (30.3-42.9) 07/24/17 05:07 MCV 87 fl (79-97) 07/24/17 05:07 MCH 28 pg (28-32) 07/24/17 05:07 MCHC 32 % (30-34) 07/24/17 05:07 RDW 16.2 % (13.2-15.2) H 07/24/17 05:07 Plt Count 111 K/mm3 (140-440) L 07/24/17 05:07 Lymph % (Auto) 15.9 % (13.4-35.0) 07/24/17 05:07 [place] % (Auto) 5.1 % (0.0-7.3) 07/24/17 05:07 Eos % (Auto) 7.5 % (0.0-4.3) H 07/24/17 05:07 Baso % (Auto) 0.8 % (0.0-1.8) 07/24/17 05:07 Lymph # 0.8 K/mm3 (1.2-5.4) L 07/24/17 05:07 [place] # 0.3 K/mm3 (0.0-0.8) 07/24/17 05:07 Eos # 0.4 K/mm3 (0.0-0.4) 07/24/17 05:07 Baso # 0.0 K/mm3 (0.0-0.1) 07/24/17 05:07 Seg Neutrophils % 70.7 % (40.0-70.0) H 07/24/17 05:07 Seg Neutrophils # 3.7 K/mm3 (1.8-7.7) 07/24/17 05:07 POC ABG pH 7.398 (7.35-7.45) 07/23/17 04:08 POC ABG pCO2 43.5 (35-45) 07/23/17 04:08 POC ABG pO2 74 (80-105) L 07/23/17 04:08 POC ABG HCO3 26.9 07/23/17 04:08 POC ABG Total CO2 28 07/23/17 04:08 POC ABG O2 Sat 95 07/23/17 04:08 POC ABG Base Excess 2 07/23/17 04:08 FiO2 50 % 07/23/17 04:08 Sodium 139 mmol/L (137-145) D 07/24/17 05:07 Potassium 4.1 mmol/L (3.6-5.0) 07/24/17 05:07 Chloride 97.1 mmol/L (98-107) L 07/24/17 05:07 Carbon Dioxide 27 mmol/L (22-30) 07/24/17 05:07 Anion Gap 19 mmol/L 07/24/17 05:07 BUN 18 mg/dL (7-17) H 07/24/17 05:07 Creatinine 3.6 mg/dL (0.7-1.2) H 07/24/17 05:07 Estimated GFR 15 ml/min 07/24/17 05:07 BUN/Creatinine Ratio 5 % 07/24/17 05:07 Glucose 92 mg/dL (65-100) 07/24/17 05:07 POC Glucose 164 (70-105) H 07/23/17 02:54 Calcium 9.6 mg/dL (8.4-10.2) 07/24/17 05:07 Hepatitis A IgM Ab Non-reactive (NonReactive) 07/23/17 09:50 Hep Bs Antigen Non-reactive (Negative) 07/23/17 09:50 Hep B Core IgM Ab Non-reactive (NonReactive) 07/23/17 09:50 Hepatitis C Antibody Non-reactive (NonReactive) 07/23/17 09:50
[2017-07-24] MEDS: REMERON PO SCH (21:00)
[2017-07-24] MEDS: NEURONTIN PO SCH (21:00)
--- NOTE | 2017-07-25 08:12 | Progress Note ---
Assessment and Plan 1. ESRD: Continue hemodialysis three times a week, TTS schedule. Hemodialysis today. 2. Anemia: Monitor. 3. Hypertension: UF with hemodialysis today. Monitor. 4. Pneumonia. Subjective Date of service: 07/25/17 Interval history: Patient was seen and examined at the bedside. Doing ok. Objective - Vital Signs Vital signs: Vital Signs - 12hr 07/24/17 07/24/17 07/24/17 21:56 22:00 22:02 Temperature Pulse Rate Pulse Rate [ 67 Posterior Bilateral Throughout] Respiratory 20 Rate Respiratory 16 Rate [Posterior Bilateral Throughout] Blood Pressure O2 Sat by Pulse 96 Oximetry 07/25/17 07/25/17 03:43 07:54 Temperature 99.3 F 99.3 F Pulse Rate 77 87 Pulse Rate [ Posterior Bilateral Throughout] Respiratory 20 22 Rate Respiratory Rate [Posterior Bilateral Throughout] Blood Pressure 180/76 175/96 O2 Sat by Pulse 93 95 Oximetry - General Appearance General appearance: well-developed, appears stated age, other (no distress) EENT: ATNC, mucous membranes moist, hearing intact Neck: supple Respiratory: Present: Clear to Ascultation Cardiology: regular, S1S2, no murmurs Gastrointestinal: normoactive bowel sounds, no tenderness Integumentary: no rash Neurologic: no asterixis, other (bilateral blindness) Musculoskeletal: other (no edema, left arm AVF) Psychiatric: cooperative - Lab 07/24/17 05:07 07/24/17 05:07 Most recent lab results Calcium 9.6 mg/dL (8.4-10.2) 07/24/17 05:07
[2017-07-25] MEDS: PROVENTIL IH SCH ×2 (09:20→18:30)
[2017-07-25] MEDS: BABY ASPIRIN PO SCH (10:22)
[2017-07-25] MEDS: PROTONIX PO SCH (10:22)
[2017-07-25] MEDS: ROCALTROL PO SCH (10:22)
[2017-07-25] MEDS: NORVASC PO SCH (10:24)
[2017-07-25] MEDS: SODIUM CHLORIDE FLUSH SYRINGE 10 ML IV SCH ×2 (10:24→22:32)
[2017-07-25] MEDS: ZESTRIL PO SCH (10:25)
--- NOTE | 2017-07-25 12:26 | Progress Note ---
Hospitalist Physical - Constitutional Vitals: Temp Pulse Resp BP Pulse Ox 97.8 F 64 18 156/69 97 07/25/17 10:32 07/25/17 12:00 07/25/17 10:32 07/25/17 12:00 07/25/17 09:22 General appearance: Present: no acute distress, well-nourished, other (legally blind) Results - Labs CBC & Chem 7: 07/24/17 05:07 07/24/17 05:07 Labs: Laboratory Last Values WBC 5.2 K/mm3 (4.5-11.0) 07/24/17 05:07 RBC 3.82 M/mm3 (3.65-5.03) 07/24/17 05:07 Hgb 10.7 gm/dl (10.1-14.3) 07/24/17 05:07 Hct 33.3 % (30.3-42.9) 07/24/17 05:07 MCV 87 fl (79-97) 07/24/17 05:07 MCH 28 pg (28-32) 07/24/17 05:07 MCHC 32 % (30-34) 07/24/17 05:07 RDW 16.2 % (13.2-15.2) H 07/24/17 05:07 Plt Count 111 K/mm3 (140-440) L 07/24/17 05:07 Lymph % (Auto) 15.9 % (13.4-35.0) 07/24/17 05:07 [place] % (Auto) 5.1 % (0.0-7.3) 07/24/17 05:07 Eos % (Auto) 7.5 % (0.0-4.3) H 07/24/17 05:07 Baso % (Auto) 0.8 % (0.0-1.8) 07/24/17 05:07 Lymph # 0.8 K/mm3 (1.2-5.4) L 07/24/17 05:07 [place] # 0.3 K/mm3 (0.0-0.8) 07/24/17 05:07 Eos # 0.4 K/mm3 (0.0-0.4) 07/24/17 05:07 Baso # 0.0 K/mm3 (0.0-0.1) 07/24/17 05:07 Seg Neutrophils % 70.7 % (40.0-70.0) H 07/24/17 05:07 Seg Neutrophils # 3.7 K/mm3 (1.8-7.7) 07/24/17 05:07 POC ABG pH 7.398 (7.35-7.45) 07/23/17 04:08 POC ABG pCO2 43.5 (35-45) 07/23/17 04:08 POC ABG pO2 74 (80-105) L 07/23/17 04:08 POC ABG HCO3 26.9 07/23/17 04:08 POC ABG Total CO2 28 07/23/17 04:08 POC ABG O2 Sat 95 07/23/17 04:08 POC ABG Base Excess 2 07/23/17 04:08 FiO2 50 % 07/23/17 04:08 Sodium 139 mmol/L (137-145) D 07/24/17 05:07 Potassium 4.1 mmol/L (3.6-5.0) 07/24/17 05:07 Chloride 97.1 mmol/L (98-107) L 07/24/17 05:07 Carbon Dioxide 27 mmol/L (22-30) 07/24/17 05:07 Anion Gap 19 mmol/L 07/24/17 05:07 BUN 18 mg/dL (7-17) H 07/24/17 05:07 Creatinine 3.6 mg/dL (0.7-1.2) H 07/24/17 05:07 Estimated GFR 15 ml/min 07/24/17 05:07 BUN/Creatinine Ratio 5 % 07/24/17 05:07 Glucose 92 mg/dL (65-100) 07/24/17 05:07 POC Glucose 164 (70-105) H 07/23/17 02:54 Calcium 9.6 mg/dL (8.4-10.2) 07/24/17 05:07 Hepatitis A IgM Ab Non-reactive (NonReactive) 07/23/17 09:50 Hep Bs Antigen Non-reactive (Negative) 07/23/17 09:50 Hep B Core IgM Ab Non-reactive (NonReactive) 07/23/17 09:50 Hepatitis C Antibody Non-reactive (NonReactive) 07/23/17 09:50
--- NOTE | 2017-07-25 13:34 | Progress Note ---
Assessment and Plan Assessment and plan: --Acute hypoxic respiratory failure; Continue oxygen titrated O2 sats more than 90%, nebulizers Supportive care, IV antibiotics --Community-acquired pneumonia; continue Levaquin renal dose, supportive care Follow cultures, negative for date --End-stage renal disease; on hemodialysis Nephrology following, HB per schedule --Hypertension; moderate control, continue current antihypertensives and when necessary medications --DC planning case management, home O2 evaluation Possible home with home health when medically stable 1-2 days Plan of care reviewed with the patient and the family member at the bedside Reviewed the plan of care with the patient's nurse History Interval history: Patient seen and examined Medical records reviewed, no new events reported by the nursing staff Received hemodialysis today Admitted with community-acquired pneumonia, on IV antibiotics Exercise signs reviewed Patient's O2 sats 95-97 roommates during dialysis However in her room this evening patient's O2 sats are 87-88% Continue nasal cannula oxygen titrated to O2 sats more than 90% Will evaluate for home oxygen Hospitalist Physical - Constitutional Vitals: Temp Pulse Resp BP Pulse Ox 97.8 F 64 18 156/69 97 07/25/17 10:32 07/25/17 12:00 07/25/17 10:32 07/25/17 12:00 07/25/17 09:22 General appearance: Present: no acute distress, well-nourished, other (legally blind) - EENT Eyes: Present: PERRL, EOM intact - Neck Neck: Present: supple, normal ROM - Respiratory Respiratory effort: normal Respiratory: bilateral: diminished, negative: rales, rhonchi, wheezing - Cardiovascular Rhythm: regular Heart Sounds: Present: S1 & S2 - Extremities Extremities: no ischemia, No edema - Abdominal General gastrointestinal: soft, non-tender, non-distended, normal bowel sounds - Integumentary Integumentary: Present: clear, warm - Psychiatric Psychiatric: appropriate mood/affect, cooperative - Neurologic Neurologic: CNII-XII intact, moves all extremities Results - Labs CBC & Chem 7: 07/24/17 05:07 07/24/17 05:07 Labs: Laboratory Last Values WBC 5.2 K/mm3 (4.5-11.0) 07/24/17 05:07 RBC 3.82 M/mm3 (3.65-5.03) 07/24/17 05:07 Hgb 10.7 gm/dl (10.1-14.3) 07/24/17 05:07 Hct 33.3 % (30.3-42.9) 07/24/17 05:07 MCV 87 fl (79-97) 07/24/17 05:07 MCH 28 pg (28-32) 07/24/17 05:07 MCHC 32 % (30-34) 07/24/17 05:07 RDW 16.2 % (13.2-15.2) H 07/24/17 05:07 Plt Count 111 K/mm3 (140-440) L 07/24/17 05:07 Lymph % (Auto) 15.9 % (13.4-35.0) 07/24/17 05:07 [place] % (Auto) 5.1 % (0.0-7.3) 07/24/17 05:07 Eos % (Auto) 7.5 % (0.0-4.3) H 07/24/17 05:07 Baso % (Auto) 0.8 % (0.0-1.8) 07/24/17 05:07 Lymph # 0.8 K/mm3 (1.2-5.4) L 07/24/17 05:07 [place] # 0.3 K/mm3 (0.0-0.8) 07/24/17 05:07 Eos # 0.4 K/mm3 (0.0-0.4) 07/24/17 05:07 Baso # 0.0 K/mm3 (0.0-0.1) 07/24/17 05:07 Seg Neutrophils % 70.7 % (40.0-70.0) H 07/24/17 05:07 Seg Neutrophils # 3.7 K/mm3 (1.8-7.7) 07/24/17 05:07 POC ABG pH 7.398 (7.35-7.45) 07/23/17 04:08 POC ABG pCO2 43.5 (35-45) 07/23/17 04:08 POC ABG pO2 74 (80-105) L 07/23/17 04:08 POC ABG HCO3 26.9 07/23/17 04:08 POC ABG Total CO2 28 07/23/17 04:08 POC ABG O2 Sat 95 07/23/17 04:08 POC ABG Base Excess 2 07/23/17 04:08 FiO2 50 % 07/23/17 04:08 Sodium 139 mmol/L (137-145) D 07/24/17 05:07 Potassium 4.1 mmol/L (3.6-5.0) 07/24/17 05:07 Chloride 97.1 mmol/L (98-107) L 07/24/17 05:07 Carbon Dioxide 27 mmol/L (22-30) 07/24/17 05:07 Anion Gap 19 mmol/L 07/24/17 05:07 BUN 18 mg/dL (7-17) H 07/24/17 05:07 Creatinine 3.6 mg/dL (0.7-1.2) H 07/24/17 05:07 Estimated GFR 15 ml/min 07/24/17 05:07 BUN/Creatinine Ratio 5 % 07/24/17 05:07 Glucose 92 mg/dL (65-100) 07/24/17 05:07 POC Glucose 164 (70-105) H 07/23/17 02:54 Calcium 9.6 mg/dL (8.4-10.2) 07/24/17 05:07 Hepatitis A IgM Ab Non-reactive (NonReactive) 07/23/17 09:50 Hep Bs Antigen Non-reactive (Negative) 07/23/17 09:50 Hep B Core IgM Ab Non-reactive (NonReactive) 07/23/17 09:50 Hepatitis C Antibody Non-reactive (NonReactive) 07/23/17 09:50
[2017-07-25] MEDS: REMERON PO SCH (22:32)
[2017-07-25] MEDS: NEURONTIN PO SCH (22:32)
[2017-07-26] MEDS: PROVENTIL IH SCH ×4 (01:44→19:52)
[2017-07-26] MEDS: APRESOLINE IV PRN ×2 (03:05→22:56)
[2017-07-26] MEDS: ZESTRIL PO SCH ×2 (06:15→10:00)
[2017-07-26] MEDS: NORVASC PO SCH ×2 (06:16→10:00)
--- NOTE | 2017-07-26 08:33 | Progress Note ---
Assessment and Plan 1. ESRD: Continue hemodialysis three times a week, TTS schedule. Last dialyzed yesterday. 2. Anemia: Monitor. 3. Hypertension: Add Doxazosin. Monitor. 4. Pneumonia. Subjective Date of service: 07/26/17 Interval history: Patient was seen and examined at the bedside. Doing ok. Objective - Vital Signs Vital signs: Vital Signs - 12hr 07/25/17 07/26/17 07/26/17 22:00 02:20 02:21 Temperature 97.4 F L Pulse Rate 66 Respiratory 20 20 Rate Respiratory Rate [Medial Back] Blood Pressure 202/77 193/83 O2 Sat by Pulse 93 93 Oximetry 07/26/17 07/26/17 07/26/17 03:05 06:00 06:11 Temperature Pulse Rate 74 Respiratory 20 Rate Respiratory 20 Rate [Medial Back] Blood Pressure 193/66 195/87 O2 Sat by Pulse 94 Oximetry 07/26/17 07/26/17 06:15 06:16 Temperature Pulse Rate 75 74 Respiratory Rate Respiratory Rate [Medial Back] Blood Pressure 195/87 195/87 O2 Sat by Pulse Oximetry - General Appearance General appearance: well-developed, well-nourished, appears stated age, other ( no distress) EENT: ATNC Neck: supple Respiratory: Present: Clear to Ascultation Cardiology: regular, S1S2, no murmurs Gastrointestinal: normoactive bowel sounds Integumentary: no rash Neurologic: no asterixis, other (bilateral blindness) Musculoskeletal: other (no edema, left arm AVF) - Lab 07/24/17 05:07 07/24/17 05:07 Most recent lab results Calcium 9.6 mg/dL (8.4-10.2) 07/24/17 05:07
[2017-07-26] MEDS: LEVAQUIN 250MG/50ML 250 MG/50 ML BAG IV SCH (10:00)
[2017-07-26] MEDS: ROCALTROL PO SCH (10:00)
[2017-07-26] MEDS: PROTONIX PO SCH (10:00)
[2017-07-26] MEDS: SODIUM CHLORIDE FLUSH SYRINGE 10 ML IV SCH ×2 (10:00→22:57)
[2017-07-26] MEDS: BABY ASPIRIN PO SCH (10:00)
--- NOTE | 2017-07-26 10:21 | Progress Note ---
Assessment and Plan Assessment and plan: --Acute hypoxic respiratory failure; Continue oxygen titrated O2 sats more than 90%, nebulizers Supportive care, IV antibiotics --Community-acquired pneumonia; continue Levaquin renal dose, supportive care Follow cultures, negative for date --End-stage renal disease; on hemodialysis Nephrology following, HB per schedule --Hypertension; moderate control, continue current antihypertensives and when necessary medications --DC planning case management, home O2 evaluation Possible home with home health when medically stable 1-2 days Plan of care reviewed with the patient and the family member at the bedside Reviewed the plan of care with the patient's nurse Management not available, patient need home oxygen set up and home health service Medically stable for discharge History Interval history: Feels better no new complaints Vital signs reviewed Awaiting discharge Awaiting home O2 set up Hospitalist Physical - Constitutional Vitals: Temp Pulse Resp BP Pulse Ox 99.6 F 74 20 168/74 94 07/26/17 09:01 07/26/17 09:01 07/26/17 09:01 07/26/17 09:01 07/26/17 09:35 General appearance: Present: no acute distress, well-nourished, other (legally blind) - EENT Eyes: Present: PERRL, EOM intact - Neck Neck: Present: supple, normal ROM - Respiratory Respiratory effort: normal Respiratory: bilateral: diminished, negative: rales, rhonchi, wheezing - Cardiovascular Rhythm: regular Heart Sounds: Present: S1 & S2 - Extremities Extremities: no ischemia, No edema - Abdominal General gastrointestinal: soft, non-tender, non-distended, normal bowel sounds - Integumentary Integumentary: Present: clear, warm - Psychiatric Psychiatric: appropriate mood/affect, cooperative - Neurologic Neurologic: moves all extremities (legally blind) Results - Labs CBC & Chem 7: 07/24/17 05:07 07/24/17 05:07 Labs: Laboratory Last Values WBC 5.2 K/mm3 (4.5-11.0) 07/24/17 05:07 RBC 3.82 M/mm3 (3.65-5.03) 07/24/17 05:07 Hgb 10.7 gm/dl (10.1-14.3) 07/24/17 05:07 Hct 33.3 % (30.3-42.9) 07/24/17 05:07 MCV 87 fl (79-97) 07/24/17 05:07 MCH 28 pg (28-32) 07/24/17 05:07 MCHC 32 % (30-34) 07/24/17 05:07 RDW 16.2 % (13.2-15.2) H 07/24/17 05:07 Plt Count 111 K/mm3 (140-440) L 07/24/17 05:07 Lymph % (Auto) 15.9 % (13.4-35.0) 07/24/17 05:07 [place] % (Auto) 5.1 % (0.0-7.3) 07/24/17 05:07 Eos % (Auto) 7.5 % (0.0-4.3) H 07/24/17 05:07 Baso % (Auto) 0.8 % (0.0-1.8) 07/24/17 05:07 Lymph # 0.8 K/mm3 (1.2-5.4) L 07/24/17 05:07 [place] # 0.3 K/mm3 (0.0-0.8) 07/24/17 05:07 Eos # 0.4 K/mm3 (0.0-0.4) 07/24/17 05:07 Baso # 0.0 K/mm3 (0.0-0.1) 07/24/17 05:07 Seg Neutrophils % 70.7 % (40.0-70.0) H 07/24/17 05:07 Seg Neutrophils # 3.7 K/mm3 (1.8-7.7) 07/24/17 05:07 POC ABG pH 7.398 (7.35-7.45) 07/23/17 04:08 POC ABG pCO2 43.5 (35-45) 07/23/17 04:08 POC ABG pO2 74 (80-105) L 07/23/17 04:08 POC ABG HCO3 26.9 07/23/17 04:08 POC ABG Total CO2 28 07/23/17 04:08 POC ABG O2 Sat 95 07/23/17 04:08 POC ABG Base Excess 2 07/23/17 04:08 FiO2 50 % 07/23/17 04:08 Sodium 139 mmol/L (137-145) D 07/24/17 05:07 Potassium 4.1 mmol/L (3.6-5.0) 07/24/17 05:07 Chloride 97.1 mmol/L (98-107) L 07/24/17 05:07 Carbon Dioxide 27 mmol/L (22-30) 07/24/17 05:07 Anion Gap 19 mmol/L 07/24/17 05:07 BUN 18 mg/dL (7-17) H 07/24/17 05:07 Creatinine 3.6 mg/dL (0.7-1.2) H 07/24/17 05:07 Estimated GFR 15 ml/min 07/24/17 05:07 BUN/Creatinine Ratio 5 % 07/24/17 05:07 Glucose 92 mg/dL (65-100) 07/24/17 05:07 POC Glucose 164 (70-105) H 07/23/17 02:54 Calcium 9.6 mg/dL (8.4-10.2) 07/24/17 05:07 Hepatitis A IgM Ab Non-reactive (NonReactive) 07/23/17 09:50 Hep Bs Antigen Non-reactive (Negative) 07/23/17 09:50 Hep B Core IgM Ab Non-reactive (NonReactive) 07/23/17 09:50 Hepatitis C Antibody Non-reactive (NonReactive) 07/23/17 09:50
--- NOTE | 2017-07-26 10:22 | Discharge Summary ---
Providers - Providers Date of Admission: 07/22/17 03:05 Date of discharge: 07/26/17 Attending physician: JUDI ESPARZA 07/22/17 00:31 Consult to Physician [CONS] Urgent Comment: Consulting Provider: ELLEN BREWER Physician Instructions: Reason For Exam: end stage renal disease on hemodialysis Primary care physician: DOLL WIG MAKER [employer] Hospitalization Condition: Stable Disposition: - TO HOME OR SELFCARE Core Measure Documentation - Palliative Care Palliative Care/ Comfort Measures: Not Applicable Exam - Constitutional Vitals: Temp Pulse Resp BP Pulse Ox 99.6 F 74 20 168/74 94 07/26/17 09:01 07/26/17 09:01 07/26/17 09:01 07/26/17 09:01 07/26/17 09:35 Plan Follow up with: SILVIANO STRICKLAND MD [Primary Care Provider] - 3-5 Days ELLEN BREWER MD [Staff Physician] - 7 Days Prescriptions: Azithromycin [Zithromax Z-JULIANNA] 0 mg PO DAILY #1 tab
[2017-07-26] MEDS ORDERED: CARDURA PO SCH (22:00)
[2017-07-26] MEDS: NEURONTIN PO SCH (22:56)
[2017-07-26] MEDS: REMERON PO SCH (22:56)
[2017-07-27] MEDS: PROVENTIL IH SCH ×3 (08:07→22:58)
--- NOTE | 2017-07-27 09:19 | Progress Note ---
Assessment and Plan 1. ESRD: Continue hemodialysis three times a week, TTS schedule. Next HD tomorrow. 2. Anemia: Monitor. 3. Hypertension: Increase Doxazosin to 8 mg QHS. UF with HD. Monitor. 4. Pneumonia. Subjective Date of service: 07/27/17 Interval history: Patient was seen and examined at the bedside. Doing ok. Objective - Vital Signs Vital signs: Vital Signs - 12hr 07/26/17 07/26/17 07/27/17 22:00 22:56 02:58 Temperature 98.3 F Pulse Rate 84 70 Respiratory 20 18 Rate Respiratory 20 Rate [Medial Back] Blood Pressure 208/87 164/70 O2 Sat by Pulse 92 83 L Oximetry 07/27/17 07/27/17 03:00 07:32 Temperature 98.7 F Pulse Rate 74 67 Respiratory 20 Rate Respiratory Rate [Medial Back] Blood Pressure 167/73 O2 Sat by Pulse 90 95 Oximetry - General Appearance General appearance: well-developed, appears stated age, other (no distress) EENT: ATNC, hearing intact Neck: supple Respiratory: Present: Clear to Ascultation Cardiology: regular, S1S2, no murmurs Gastrointestinal: normoactive bowel sounds, no tenderness Integumentary: no rash, warm and dry Neurologic: other (bilateral blindness, able to move extremities) Musculoskeletal: other (no edema, left arm AVF) Psychiatric: cooperative - Lab 07/24/17 05:07 07/24/17 05:07 Most recent lab results Calcium 9.6 mg/dL (8.4-10.2) 07/24/17 05:07
[2017-07-27] MEDS: ROCALTROL PO SCH (12:11)
[2017-07-27] MEDS: PROTONIX PO SCH (12:11)
[2017-07-27] MEDS: SODIUM CHLORIDE FLUSH SYRINGE 10 ML IV SCH ×2 (12:11→22:06)
[2017-07-27] MEDS: BABY ASPIRIN PO SCH (12:12)
[2017-07-27] MEDS: NORVASC PO SCH (12:13)
[2017-07-27] MEDS: ZESTRIL PO SCH (12:15)
--- NOTE | 2017-07-27 18:23 | Progress Note ---
Assessment and Plan Assessment and plan: 67-year-old -[place]i female patient with history of hypertension and diabetes mellitus and end-stage renal disease on dialysis was admitted through emergency room with productive cough and shortness of breath Noted to have community-acquired pneumonia, started on IV antibiotics Evaluated by nephrology receiving hemodialysis, currently hypoxemic requiring home oxygen Case management setting up home O2 at discharge --Acute hypoxic respiratory failure Continue oxygen titrated O2 sats more than 90%, nebulizers Supportive care, IV antibiotics --Community-acquired pneumonia; continue Levaquin renal dose, cultures, negative to date --End-stage renal disease; on hemodialysis Nephrology following, HD per schedule TTS --Hypertension; moderate control, continue current antihypertensives and when necessary medications --DC planning case management, home O2 2 L nasal cannula Possible home with home health when medically stable 1-2 days Plan of care reviewed with the patient and the family member at the bedside Reviewed the plan of care with the patient's nurse Patient is medically stable for discharge on home oxygen DC planning per case management History Interval history: Patient Seen and examined Medical record reviewed No complaints Vital signs stable Hospitalist Physical - Constitutional Vitals: Temp Pulse Resp BP Pulse Ox 98.7 F 77 18 175/72 95 07/27/17 07:32 07/27/17 14:10 07/27/17 14:10 07/27/17 12:13 07/27/17 09:25 General appearance: Present: no acute distress, well-nourished, other (legally blind) - EENT Eyes: Present: PERRL, EOM intact - Neck Neck: Present: supple, normal ROM - Respiratory Respiratory effort: normal Respiratory: bilateral: diminished, negative: rales, rhonchi, wheezing - Cardiovascular Rhythm: regular Heart Sounds: Present: S1 & S2 - Extremities Extremities: no ischemia, No edema - Abdominal General gastrointestinal: soft, non-tender, non-distended, normal bowel sounds - Integumentary Integumentary: Present: clear, warm - Psychiatric Psychiatric: appropriate mood/affect, cooperative - Neurologic Neurologic: CNII-XII intact, moves all extremities Results - Labs CBC & Chem 7: 07/24/17 05:07 07/24/17 05:07 Labs: Laboratory Last Values WBC 5.2 K/mm3 (4.5-11.0) 07/24/17 05:07 RBC 3.82 M/mm3 (3.65-5.03) 07/24/17 05:07 Hgb 10.7 gm/dl (10.1-14.3) 07/24/17 05:07 Hct 33.3 % (30.3-42.9) 07/24/17 05:07 MCV 87 fl (79-97) 07/24/17 05:07 MCH 28 pg (28-32) 07/24/17 05:07 MCHC 32 % (30-34) 07/24/17 05:07 RDW 16.2 % (13.2-15.2) H 07/24/17 05:07 Plt Count 111 K/mm3 (140-440) L 07/24/17 05:07 Lymph % (Auto) 15.9 % (13.4-35.0) 07/24/17 05:07 [place]ie % (Auto) 5.1 % (0.0-7.3) 07/24/17 05:07 Eos % (Auto) 7.5 % (0.0-4.3) H 07/24/17 05:07 Baso % (Auto) 0.8 % (0.0-1.8) 07/24/17 05:07 Lymph # 0.8 K/mm3 (1.2-5.4) L 07/24/17 05:07 Bertie # 0.3 K/mm3 (0.0-0.8) 07/24/17 05:07 Eos # 0.4 K/mm3 (0.0-0.4) 07/24/17 05:07 Baso # 0.0 K/mm3 (0.0-0.1) 07/24/17 05:07 Seg Neutrophils % 70.7 % (40.0-70.0) H 07/24/17 05:07 Seg Neutrophils # 3.7 K/mm3 (1.8-7.7) 07/24/17 05:07 POC ABG pH 7.398 (7.35-7.45) 07/23/17 04:08 POC ABG pCO2 43.5 (35-45) 07/23/17 04:08 POC ABG pO2 74 (80-105) L 07/23/17 04:08 POC ABG HCO3 26.9 07/23/17 04:08 POC ABG Total CO2 28 07/23/17 04:08 POC ABG O2 Sat 95 07/23/17 04:08 POC ABG Base Excess 2 07/23/17 04:08 FiO2 50 % 07/23/17 04:08 Sodium 139 mmol/L (137-145) D 07/24/17 05:07 Potassium 4.1 mmol/L (3.6-5.0) 07/24/17 05:07 Chloride 97.1 mmol/L (98-107) L 07/24/17 05:07 Carbon Dioxide 27 mmol/L (22-30) 07/24/17 05:07 Anion Gap 19 mmol/L 07/24/17 05:07 BUN 18 mg/dL (7-17) H 07/24/17 05:07 Creatinine 3.6 mg/dL (0.7-1.2) H 07/24/17 05:07 Estimated GFR 15 ml/min 07/24/17 05:07 BUN/Creatinine Ratio 5 % 07/24/17 05:07 Glucose 92 mg/dL (65-100) 07/24/17 05:07 POC Glucose 164 (70-105) H 07/23/17 02:54 Calcium 9.6 mg/dL (8.4-10.2) 07/24/17 05:07 Hepatitis A IgM Ab Non-reactive (NonReactive) 07/23/17 09:50 Hep Bs Antigen Non-reactive (Negative) 07/23/17 09:50 Hep B Core IgM Ab Non-reactive (NonReactive) 07/23/17 09:50 Hepatitis C Antibody Non-reactive (NonReactive) 07/23/17 09:50
[2017-07-27] MEDS ORDERED: MILK OF MAGNESIA PO PRN (19:00)
[2017-07-27] MEDS: CARDURA PO SCH (22:04)
[2017-07-27] MEDS: NEURONTIN PO SCH (22:05)
[2017-07-27] MEDS: REMERON PO SCH (22:05)
--- NOTE | 2017-07-28 08:14 | Progress Note ---
Assessment and Plan 1. ESRD: Continue hemodialysis three times a week, TTS schedule. HD today. 2. Anemia: Monitor. 3. Hypertension: UF with HD. Monitor. 4. Pneumonia. Subjective Date of service: 07/28/17 Interval history: Patient was seen and examined at the bedside. Objective - Vital Signs Vital signs: Vital Signs - 12hr 07/27/17 07/28/17 07/28/17 22:04 02:24 02:51 Temperature 98.5 F Pulse Rate 72 73 Pulse Rate [ 72 Apical] Respiratory 20 Rate Blood Pressure 163/68 150/67 O2 Sat by Pulse 98 99 Oximetry 07/28/17 07:24 Temperature 99.0 F Pulse Rate 71 Pulse Rate [ Apical] Respiratory 20 Rate Blood Pressure 156/68 O2 Sat by Pulse 98 Oximetry - General Appearance General appearance: well-developed, well-nourished, appears stated age, other ( no distress) EENT: ATNC Neck: supple Respiratory: Present: Clear to Ascultation Cardiology: regular, S1S2, no murmurs Gastrointestinal: normoactive bowel sounds, no tenderness Integumentary: no rash Neurologic: other (sleeping, arousable) Musculoskeletal: other (no edema, left arm AVF) - Lab 07/24/17 05:07 07/24/17 05:07 Most recent lab results Calcium 9.6 mg/dL (8.4-10.2) 07/24/17 05:07
[2017-07-28] MEDS ORDERED: LEVAQUIN PO SCH (10:00)
[2017-07-28] MEDS: NORVASC PO SCH (10:02)
[2017-07-28] MEDS: SODIUM CHLORIDE FLUSH SYRINGE 10 ML IV SCH ×2 (10:02→21:31)
[2017-07-28] MEDS: PROTONIX PO SCH (10:02)
[2017-07-28] MEDS: ZESTRIL PO SCH (10:02)
[2017-07-28] MEDS: BABY ASPIRIN PO SCH (10:02)
[2017-07-28] MEDS: ROCALTROL PO SCH (10:02)
[2017-07-28] MEDS: PROVENTIL IH SCH ×3 (11:53→20:40)
[2017-07-28] MEDS ORDERED: NACL 0.9 (PRIMING MACHINE ONLY DIALYSIS) MC ONE (12:57)
--- NOTE | 2017-07-28 15:27 | Query-Infection ---
Dear ___Norm Date:___07/28/2017 Tablet Coater/CDS:__Lianna Phone#:__[phone] Exercise your independent professional judgment when responding to this query. Questions asked do not imply a particular answer is desired or expected. We greatly appreciate your clarification on this issue. Clinical Documentation States: 69 Year old female was admitted on 07/22/2017 with complaints of cough productive of yellow phlegm, shortness breath, chills. The Hospitalist (Dr. Zheng) progress note states "-Community-acquired pneumonia; continue Levaquin renal dose." Clinical findings show: (please check applicable parameters) NE (07/22): 119 RR (07/22): 23 Infection, known /suspected, with some of the following indicators; Specify the infection: 3 General parameters [ ] Fever (core temp >38.30C or 100.40F) [ ] Hypothermia (core temp <36C) [X] Heart rate >90 bpm [X] Tachypnea: >20 bpm or pCO2 < 32 mmHg [ ] Altered mental status [ ] Significant edema / +ve fluid balance (>20 ml/kg 24 h) [ ] Hyperglycemia (Bl. glucose >110 mg/dl) w/o diabetes Inflammatory parameters [ ] Leukocytosis (white blood cell count >12,000/l) [ ] Leukopenia (white blood cell count <4,000/l) [ ] Bandemia (immature WBC > 10%) [ ] Leucocyte Left Shift [ ] Plasma procalcitonin>2 SD above the normal value Hemodynamic and tissue perfusion parameters [ ] Arterial hypotension(SBP <90 mmHg, MAP <70 mmHg,or a SBP drop >40 mmHg in adults) [ ] Hyperlactatemia (>3 mmol/l) [ ] Anion Gap (> 11mEG/l) [ ] Decreased capillary refill or mottling Organ dysfunction parameters [ ] Arterial hypoxemia (PaO2/FIO2 <300) [ ] Creatinine increase =0.5 mg/dl [ ] Acute oliguria (urine output <0.5 ml | kg |h or 45 mM/l for at least 2 hrs) [ ] Coagulation abnormalities (INR >1.5 or activated partial thromboplastin time >60 s) [ ] Ileus (absent mary wel sounds) [ ] Thrombocytopenia (platelet count <100,000/l) [ ] Hyperbilirubinemia (plasma total bilirubin >4 mg/dl) According to the clinical indications above, can Bacteremia be further specified? If so, please indicate below and in your Progress Notes and/ or Discharge Summary. Indicate if the condition was present on admission. PHYSICIAN RESPONSE: [ ] Sepsis [ ] Severe Sepsis [ ] Septic Shock [ ] Septicemia [ ] Sepsis now resolved [ ] SIRS due to non-infectious cause with organ dysfunction [ ] SIRS due to non-infectious cause without organ dysfunction [x] Other: Sepsis secondary to community-acquired pneumonia [ ] Comment/Explanation: Present on Admission: [x ] Yes (Y) [ ] Clinically undeterminable (W) [ ] No (N) [ ] Ruled Out Please also document response in your Progress Notes and/or Discharge Summary and indicate if the condition was present on admission Notes: SIRS/ SIRS WITH ORGAN DYSFUNCTION Systemic inflammatory response syndrome (SIRS) generally refers to the systemic response to trauma/nguyen or other insult such as Acute Myocardial Infarction, Acute Pancreatitis, and Major Surgery with symptoms including fever, tachycardia , tachypnea, and leukocytosis (1). BACTEREMIA Presence of viable bacteria in the circulating blood (2). This term is reserved for patients that do not manifest above SIRS response. SEPTICEMIA Generally refers to a systemic disease associated with the presence of pathological microorganisms or toxins in the blood, which can include bacteria, viruses, fungi or other organisms (1). SEPSIS Generally refers to SIRS due infection (1). SEVERE SEPSIS Generally refers to sepsis associated with acute organ dysfunction (1). SEPTIC SHOCK Generally refers to circulatory failure associated with severe sepsis (2), and defined as hypotension or hypoperfusion despite adequate fluid resuscitation (1 hour) (3). REFERENCES: 1. [employer]/Society of Critical Care Medicine Consensus Conference. Definitions for sepsis and organ failure and guidelines for the use of innovative therapies in sepsis. Critical Care Med 1992;20:864 - 74. 2. Marcos singer MM, Terri MP, David JAMEY, Lan E, Jaciel D, Howard D, Mike J, Devika AREVALO , Alexander TERESA, Camille G; International Sepsis Definitions Conference. 2001 SCCM/ESICM/ACCP/ATS/SIS International Sepsis Definitions Conference. Intensive Care Med. 2002;29(4):530-8. Epub 2002May 27. Review. PubMed PMID:[id number] 3. ICD-9-CM Official Guidelines for Coding and Reporting 4. Medscape Drugs, Diseases and Procedures references 5. [employer] Textbook of Internal Medicine. 18th Edition MTDD
--- NOTE | 2017-07-28 16:51 | Progress Note ---
Assessment and Plan Assessment and plan: 67-year-old -[place] female patient with history of hypertension and diabetes mellitus and end-stage renal disease on dialysis was admitted through emergency room with productive cough and shortness of breath Noted to have community-acquired pneumonia, started on IV antibiotics Evaluated by nephrology receiving hemodialysis, currently hypoxemic requiring home oxygen Case management setting up home O2 at discharge --Acute hypoxic respiratory failure Continue oxygen titrated O2 sats more than 90%, nebulizers Supportive care, IV antibiotics --Community-acquired pneumonia; continue Levaquin renal dose, cultures, negative to date --End-stage renal disease; on hemodialysis Nephrology following, HD per schedule TTS --Hypertension; moderate control, continue current antihypertensives and when necessary medications --DC planning case management, home O2 2 L nasal cannula Possible home with home health when medically stable 1-2 days Plan of care reviewed with the patient and the family member at the bedside Reviewed the plan of care with the patient's nurse DC planning per case management Home oxygen set up Patient is medically stable for discharge, when home O2 was delivered History Interval history: Patient Seen and examined medical records reviewed Patient received hemodialysis today tolerated well no new complaints Medically stable for discharge Awaiting home oxygen set up Vital signs reviewed Hospitalist Physical - Constitutional Vitals: Temp Pulse Resp BP Pulse Ox 98.4 F 74 20 134/65 100 07/28/17 13:08 07/28/17 15:19 07/28/17 15:19 07/28/17 13:08 07/28/17 13:08 General appearance: Present: no acute distress, well-nourished, other (legally blind) - EENT Eyes: Present: PERRL, EOM intact - Neck Neck: Present: supple, normal ROM - Respiratory Respiratory effort: normal Respiratory: bilateral: diminished, negative: rales, rhonchi, wheezing - Cardiovascular Rhythm: regular Heart Sounds: Present: S1 & S2 - Extremities Extremities: no ischemia, No edema - Abdominal General gastrointestinal: soft, non-tender, non-distended, normal bowel sounds - Integumentary Integumentary: Present: clear, warm - Psychiatric Psychiatric: appropriate mood/affect, cooperative - Neurologic Neurologic: CNII-XII intact, moves all extremities, other ( legally blind) Results - Labs CBC & Chem 7: 07/24/17 05:07 07/24/17 05:07 Labs: Laboratory Last Values WBC 5.2 K/mm3 (4.5-11.0) 07/24/17 05:07 RBC 3.82 M/mm3 (3.65-5.03) 07/24/17 05:07 Hgb 10.7 gm/dl (10.1-14.3) 07/24/17 05:07 Hct 33.3 % (30.3-42.9) 07/24/17 05:07 MCV 87 fl (79-97) 07/24/17 05:07 MCH 28 pg (28-32) 07/24/17 05:07 MCHC 32 % (30-34) 07/24/17 05:07 RDW 16.2 % (13.2-15.2) H 07/24/17 05:07 Plt Count 111 K/mm3 (140-440) L 07/24/17 05:07 Lymph % (Auto) 15.9 % (13.4-35.0) 07/24/17 05:07 [place] % (Auto) 5.1 % (0.0-7.3) 07/24/17 05:07 Eos % (Auto) 7.5 % (0.0-4.3) H 07/24/17 05:07 Baso % (Auto) 0.8 % (0.0-1.8) 07/24/17 05:07 Lymph # 0.8 K/mm3 (1.2-5.4) L 07/24/17 05:07 [place] # 0.3 K/mm3 (0.0-0.8) 07/24/17 05:07 Eos # 0.4 K/mm3 (0.0-0.4) 07/24/17 05:07 Baso # 0.0 K/mm3 (0.0-0.1) 07/24/17 05:07 Seg Neutrophils % 70.7 % (40.0-70.0) H 07/24/17 05:07 Seg Neutrophils # 3.7 K/mm3 (1.8-7.7) 07/24/17 05:07 POC ABG pH 7.398 (7.35-7.45) 07/23/17 04:08 POC ABG pCO2 43.5 (35-45) 07/23/17 04:08 POC ABG pO2 74 (80-105) L 07/23/17 04:08 POC ABG HCO3 26.9 07/23/17 04:08 POC ABG Total CO2 28 07/23/17 04:08 POC ABG O2 Sat 95 07/23/17 04:08 POC ABG Base Excess 2 07/23/17 04:08 FiO2 50 % 07/23/17 04:08 Sodium 139 mmol/L (137-145) D 07/24/17 05:07 Potassium 4.1 mmol/L (3.6-5.0) 07/24/17 05:07 Chloride 97.1 mmol/L (98-107) L 07/24/17 05:07 Carbon Dioxide 27 mmol/L (22-30) 07/24/17 05:07 Anion Gap 19 mmol/L 07/24/17 05:07 BUN 18 mg/dL (7-17) H 07/24/17 05:07 Creatinine 3.6 mg/dL (0.7-1.2) H 07/24/17 05:07 Estimated GFR 15 ml/min 07/24/17 05:07 BUN/Creatinine Ratio 5 % 07/24/17 05:07 Glucose 92 mg/dL (65-100) 07/24/17 05:07 POC Glucose 164 (70-105) H 07/23/17 02:54 Calcium 9.6 mg/dL (8.4-10.2) 07/24/17 05:07 Hepatitis A IgM Ab Non-reactive (NonReactive) 07/23/17 09:50 Hep Bs Antigen Non-reactive (Negative) 07/23/17 09:50 Hep B Core IgM Ab Non-reactive (NonReactive) 07/23/17 09:50 Hepatitis C Antibody Non-reactive (NonReactive) 07/23/17 09:50
[2017-07-28] MEDS: REMERON PO SCH (21:30)
[2017-07-28] MEDS: CARDURA PO SCH (21:30)
[2017-07-28] MEDS: NEURONTIN PO SCH (21:31)
[2017-07-29] MEDS: PROVENTIL IH SCH ×2 (07:40→14:24)
--- NOTE | 2017-07-29 08:53 | Progress Note ---
Assessment and Plan 1. ESRD: Continue hemodialysis three times a week, TTS schedule. 2. Anemia: Monitor. 3. Hypertension: UF with HD. Monitor. 4. Pneumonia. Subjective Date of service: 07/29/17 Interval history: Patient was seen and examined at the bedside. Doing ok. Objective - Vital Signs Vital signs: Vital Signs - 12hr 07/28/17 07/28/17 07/28/17 20:57 21:30 22:00 Temperature Pulse Rate 69 Pulse Rate [ 69 Apical] Pulse Rate [ 73 Posterior Bilateral Throughout] Respiratory Rate Respiratory 18 Rate [Posterior Bilateral Throughout] Blood Pressure 165/75 O2 Sat by Pulse 97 Oximetry 07/29/17 07/29/17 07/29/17 02:16 07:49 07:50 Temperature 98.7 F 98.7 F Pulse Rate 67 63 Pulse Rate [ Apical] Pulse Rate [ 67 Posterior Bilateral Throughout] Respiratory 18 20 Rate Respiratory 18 Rate [Posterior Bilateral Throughout] Blood Pressure 178/72 161/62 O2 Sat by Pulse 100 100 Oximetry 07/29/17 07/29/17 08:13 08:14 Temperature Pulse Rate Pulse Rate [ Apical] Pulse Rate [ 80 Posterior Bilateral Throughout] Respiratory Rate Respiratory 18 Rate [Posterior Bilateral Throughout] Blood Pressure O2 Sat by Pulse 100 Oximetry - General Appearance General appearance: well-developed, well-nourished, appears stated age, other ( no distress) EENT: ATNC Neck: supple Respiratory: Present: Clear to Ascultation Cardiology: regular, S1S2, no murmurs Gastrointestinal: normoactive bowel sounds, no tenderness Integumentary: no rash, warm and dry Neurologic: other (able to move all 4 extremities, bilateral blindness) Musculoskeletal: other (no edema, left arm AVF) Psychiatric: cooperative - Lab 07/24/17 05:07 07/24/17 05:07 Most recent lab results Calcium 9.6 mg/dL (8.4-10.2) 07/24/17 05:07
[2017-07-29] MEDS: BABY ASPIRIN PO SCH (09:18)
[2017-07-29] MEDS: ROCALTROL PO SCH (09:18)
[2017-07-29] MEDS: ZESTRIL PO SCH (09:18)
[2017-07-29] MEDS: PROTONIX PO SCH (09:18)
[2017-07-29] MEDS: NORVASC PO SCH (09:19)
--- NOTE | 2017-07-29 15:18 | Progress Note ---
Hospitalist Physical - Constitutional Vitals: Temp Pulse Resp BP Pulse Ox 98.5 F 64 18 163/62 93 07/29/17 14:00 07/29/17 14:10 07/29/17 14:10 07/29/17 14:00 07/29/17 15:04 General appearance: Present: no acute distress, well-nourished, other (legally blind) Results - Labs CBC & Chem 7: 07/24/17 05:07 07/24/17 05:07 Labs: Laboratory Last Values WBC 5.2 K/mm3 (4.5-11.0) 07/24/17 05:07 RBC 3.82 M/mm3 (3.65-5.03) 07/24/17 05:07 Hgb 10.7 gm/dl (10.1-14.3) 07/24/17 05:07 Hct 33.3 % (30.3-42.9) 07/24/17 05:07 MCV 87 fl (79-97) 07/24/17 05:07 MCH 28 pg (28-32) 07/24/17 05:07 MCHC 32 % (30-34) 07/24/17 05:07 RDW 16.2 % (13.2-15.2) H 07/24/17 05:07 Plt Count 111 K/mm3 (140-440) L 07/24/17 05:07 Lymph % (Auto) 15.9 % (13.4-35.0) 07/24/17 05:07 [place] % (Auto) 5.1 % (0.0-7.3) 07/24/17 05:07 Eos % (Auto) 7.5 % (0.0-4.3) H 07/24/17 05:07 Baso % (Auto) 0.8 % (0.0-1.8) 07/24/17 05:07 Lymph # 0.8 K/mm3 (1.2-5.4) L 07/24/17 05:07 [place] # 0.3 K/mm3 (0.0-0.8) 07/24/17 05:07 Eos # 0.4 K/mm3 (0.0-0.4) 07/24/17 05:07 Baso # 0.0 K/mm3 (0.0-0.1) 07/24/17 05:07 Seg Neutrophils % 70.7 % (40.0-70.0) H 07/24/17 05:07 Seg Neutrophils # 3.7 K/mm3 (1.8-7.7) 07/24/17 05:07 POC ABG pH 7.398 (7.35-7.45) 07/23/17 04:08 POC ABG pCO2 43.5 (35-45) 07/23/17 04:08 POC ABG pO2 74 (80-105) L 07/23/17 04:08 POC ABG HCO3 26.9 07/23/17 04:08 POC ABG Total CO2 28 07/23/17 04:08 POC ABG O2 Sat 95 07/23/17 04:08 POC ABG Base Excess 2 07/23/17 04:08 FiO2 50 % 07/23/17 04:08 Sodium 139 mmol/L (137-145) D 07/24/17 05:07 Potassium 4.1 mmol/L (3.6-5.0) 07/24/17 05:07 Chloride 97.1 mmol/L (98-107) L 07/24/17 05:07 Carbon Dioxide 27 mmol/L (22-30) 07/24/17 05:07 Anion Gap 19 mmol/L 07/24/17 05:07 BUN 18 mg/dL (7-17) H 07/24/17 05:07 Creatinine 3.6 mg/dL (0.7-1.2) H 07/24/17 05:07 Estimated GFR 15 ml/min 07/24/17 05:07 BUN/Creatinine Ratio 5 % 07/24/17 05:07 Glucose 92 mg/dL (65-100) 07/24/17 05:07 POC Glucose 164 (70-105) H 07/23/17 02:54 Calcium 9.6 mg/dL (8.4-10.2) 07/24/17 05:07 Hepatitis A IgM Ab Non-reactive (NonReactive) 07/23/17 09:50 Hep Bs Antigen Non-reactive (Negative) 07/23/17 09:50 Hep B Core IgM Ab Non-reactive (NonReactive) 07/23/17 09:50 Hepatitis C Antibody Non-reactive (NonReactive) 07/23/17 09:50
[2017-07-29] MEDS ORDERED: MINIPRESS PO SCH (16:30)
[2017-07-29 17:42] VITALS: BP 153/67
== END 2017-07-29 19:00 | disposition home or self-care (01) | DRG 871 ==
LOC: ED 19:01 → 2B-ACE 07-22 03:05
PROVIDERS: ADMIT Internal Medicine; ATTEND Internal Medicine
PROC: 4A033R1 Measurement of Arterial Saturation, Peripheral, Percutaneous Approach (ICD-10-PCS; principal; 2017-07-23)
PROC: 5A1D70Z Performance of Urinary Filtration, Intermittent, Less than 6 Hours Per Day (ICD-10-PCS; 2017-07-23)
PROC: 5A09357 Assistance with Respiratory Ventilation, Less than 24 Consecutive Hours, Continuous Positive Airway Pressure (ICD-10-PCS; 2017-07-23)
PROC: 5A1D70Z Performance of Urinary Filtration, Intermittent, Less than 6 Hours Per Day (ICD-10-PCS; 2017-07-25)
PROC: 5A1D70Z Performance of Urinary Filtration, Intermittent, Less than 6 Hours Per Day (ICD-10-PCS; 2017-07-28)
DX: A41.9 Sepsis, unspecified organism (principal); J18.1 Lobar pneumonia, unspecified organism; N18.6 End stage renal disease; J96.01 Acute respiratory failure with hypoxia; I12.0 Hypertensive chronic kidney disease with stage 5 chronic kidney disease or end stage renal disease; Z99.2 Dependence on renal dialysis; E11.22 Type 2 diabetes mellitus with diabetic chronic kidney disease; J20.9 Acute bronchitis, unspecified; H54.8 Legal blindness, as defined in USA; Z82.49 Family history of ischemic heart disease and other diseases of the circulatory system; D64.9 Anemia, unspecified; Z79.82 Long term (current) use of aspirin; M19.90 Unspecified osteoarthritis, unspecified site; K21.9 Gastro-esophageal reflux disease without esophagitis
CPT/HCPCS: 36415; 36600; 71045; 71046; 80048; 80074; 82803; 82962; 85025; 87040; 93005; 93010; 94640; 94660; 94760; 96365; 96375; J0360; J1956; J2405; J7030; Q0162

== ENCOUNTER 2017-11-23 00:13 | Inpatient (IN) | payer MEDICARE ==
[2017-11-23] MEDS ORDERED: LASIX IV ONE (00:50)
[2017-11-23] MEDS ORDERED: BABY ASPIRIN PO ONE (01:07)
--- NOTE | 2017-11-23 01:07 | Emergency Department Report ---
HPI - General Chief Complaint: Dyspnea/Respdistress Time Seen by Provider: 11/23/17 00:41 - HPI HPI: The patient is a 67 yo female with a sniffing history of end-stage renal disease , diabetes, hypertension, who presents for evaluation of dyspnea. The patient reports constant severe dyspnea for the past day, worsened with exertion, improved with wrist, and associated with a number of cough. ED Past Medical Hx - Past Medical History Hx Hypertension: Yes Hx Diabetes: Yes Hx GERD: Yes Hx Renal Disease: Yes (tues, thnargis, sat) Hx Arthritis: Yes Additional medical history: pt is blind - Surgical History Hx Breast Surgery: Yes (right breast) Additional Surgical History: GRAFT LEFT UPPER ARM. LEFT LOBECTOMY - Social History Smoking Status: Never Smoker Substance Use Type: None - Medications Home Medications: Home Medications Medication Instructions Recorded Confirmed Last Taken Type Aspirin 81 mg QDAY 07/22/17 07/22/17 1 Day Ago History ~07/21/17 Calcitriol [Rocaltrol] 0.25 mcg PO QDAY 07/22/17 07/22/17 1 Day Ago History ~07/21/17 Calcium 600-Vit D3 800 Caplet 1 tab QDAY 07/22/17 07/22/17 1 Day Ago History ~07/21/17 Darbepoetin Mike in Polysorbat 60 mcg IJ 1XW 07/22/17 07/22/17 1 Day Ago History ~07/21/17 Esomeprazole Magnesium [Nexium 20 mg PO QDAY 07/22/17 07/22/17 1 Day Ago History 24Hr] ~07/21/17 Gabapentin [Neurontin] 300 mg PO QHS 07/22/17 07/22/17 2 Days Ago History ~07/20/17 Letrozole (Nf) [Femara (Nf)] 2.5 mg PO QDAY 07/22/17 07/22/17 1 Day Ago History ~07/21/17 Lisinopril [Zestril] 40 mg PO QDAY 07/22/17 07/22/17 1 Day Ago History ~07/21/17 Mirtazapine [Remeron] 30 mg PO QHS 07/22/17 07/22/17 2 Days Ago History ~07/20/17 Ondansetron [Zofran TAB] 4 mg PO QDAY PRN 07/22/17 07/22/17 2 Days Ago History ~07/20/17 amLODIPine 10 mg QDAY 07/22/17 07/22/17 1 Day Ago History ~07/21/17 hydrALAZINE 100 mg Q8HR 07/22/17 07/22/17 1 Day Ago History ~07/21/17 Azithromycin [Zithromax Z-JULIANNA] 0 mg PO DAILY #1 tab 07/23/17 Unknown Rx ED Review of Systems ROS: Stated complaint: EVE, ABD PAIN, Other details as noted in HPI Constitutional: denies: fever ENT: denies: throat or neck pain Respiratory: reports cough, shortness of breath Cardiovascular: denies: chest pain Endocrine: denies unexplained weight loss or gain Gastrointestinal: denies: abdominal pain, nausea Genitourinary: denies: dysuria Musculoskeletal: denies: leg swelling Skin: denies: rash Neurological: denies: headache Hematological/Lymphatic: denies: easy bleeding or easy bruising Psych: denies sadness or hopelessness Physical Exam - Physical Exam Vital Signs: Vital Signs 11/23/17 00:25 Temperature 98.7 F Pulse Rate 66 Respiratory 26 H Rate Blood Pressure 170/71 O2 Sat by Pulse 93 Oximetry Physical Exam: General: well-nourished, well-developed, no acute distress Head: Normocephalic, atraumatic Eyes: normal sclera ENT: Mucous membranes are pink and moist Neck: trachea midline, neck supple, No neck stiffness, no cervical adenopathy Respiratory: Diminished breath sounds and crackles present to the patient unable alonso bilaterally Cardio: S1 and S2 present, no murmurs, rubs, gallops, capillary refill is brisk Abdomen: Normoactive bowel sounds, soft abdomen, no rigidity, no guarding or rebound tenderness Chest WALL/Back: No tenderness to palpation of the chest wall, no CVA tenderness with percussion Musc: No pitting edema Skin: No rash Neuro: no facial drooping, normal speech Psych: Normal affect ED Course Vital Signs 11/23/17 00:25 Temperature 98.7 F Pulse Rate 66 Respiratory 26 H Rate Blood Pressure 170/71 O2 Sat by Pulse 93 Oximetry ED Medical Decision Making - Lab Data Result diagrams: 11/23/17 01:07 11/23/17 01:07 - Medical Decision Making The patient was seen and examined by myself. The patient is placed on a tire setter and continuous pulse ox. On initial evaluation, the patient was found to be in no distress, although with hypoxia, O2 saturation in 70s on baseline 2L. Evaluation orders were placed. Lab results revealed elevated BNP. Chest x-ray reveals bilateral significant pulmonary edema. The patient is given IV Lasix. This patient's found to have severe pulmonary edema, dialysis is indicated for removal of excess fluid. A consultation is placed for nephrology. The on-call hospitalist service was contacted. They agreed to admit the patient for further treatment and close monitoring. The ED admit order was placed. The patient was admitted in guarded condition. Critical care attestation.: If time is entered above; I have spent that time in minutes in the direct care of this critically ill patient, excluding procedure time. ED Disposition Clinical Impression: End-stage renal disease on hemodialysis, Hypoxemia Pulmonary edema Qualifiers: Chronicity: acute Qualified Code(s): J81.0 - Acute pulmonary edema Disposition: OP ADMIT IP TO THIS HOSP Is pt being admited?: Yes Does the pt Need Aspirin: Yes Condition: Serious Instructions: Pulmonary Edema (ED) Time of Disposition: 01:07
[2017-11-23 01:29] LABS: Basophils # (Auto) 0.1 K/mm3 (0.0-0.1); Basophils % (Auto) 0.7 % (0.0-1.8); Eosinophils # (Auto) 1.2 K/mm3 (0.0-0.4); Eosinophils % (Auto) 12.9 % (0.0-4.3); Hematocrit 31.7 % (30.3-42.9); Hemoglobin 10.2 gm/dl (10.1-14.3); Lymphocytes # (Auto) 0.7 K/mm3 (1.2-5.4); Lymphocytes % (Auto) 7.8 % (13.4-35.0); Mean Corpuscular HGB Conc 32 % (30-34); Mean Corpuscular Hemoglobin 29 pg (28-32); Mean Corpuscular Volume 89 fl (79-97); Monocytes # (Auto) 0.3 K/mm3 (0.0-0.8); Monocytes % (Auto) 2.9 % (0.0-7.3); Red Blood Count 3.56 M/mm3 (3.65-5.03); Red Cell Distribution Width 15.7 % (13.2-15.2)
[2017-11-23 01:30] LABS: Platelet Count 92 K/mm3 (140-440)
[2017-11-23 01:42] LABS: INR 1.2 (0.87-1.13)
--- NOTE | 2017-11-23 01:42 | XRay Report ---
FINAL REPORT PROCEDURE: XR CHEST 1V AP TECHNIQUE: Chest radiograph anteroposterior view. CPT 37603 HISTORY: chest pain COMPARISON: 07/23/2017 FINDINGS: Heart: Heart is enlarged Mediastinum/Vessels: Normal. Lungs/Pleural space: There is suboptimal inspiration. There is bilateral perihilar pulmonary edema consistent with heart failure. There is no pleural effusion or pneumothorax.. Bony thorax: No acute osseous abnormality. Life support devices: None. IMPRESSION: Heart is enlarged There is suboptimal inspiration. There is bilateral perihilar pulmonary edema consistent with heart failure. There is no pleural effusion or pneumothorax.. .
[2017-11-23 01:43] LABS: Partial Thromboplastin Time 30.3 Sec. (24.2-36.6)
[2017-11-23 01:52] LABS: Calcium 9.6 mg/dL (8.4-10.2)
[2017-11-23] MEDS ORDERED: TYLENOL PO PRN (03:24)
[2017-11-23] MEDS ORDERED: DARBEPOETIN ALFA IN POLYSORBAT 60 MCG IJ SCH (03:30)
[2017-11-23] MEDS ORDERED: D50W (25GM) Syringe IV PRN (03:32)
[2017-11-23] MEDS ORDERED: PROVENTIL IH PRN (03:39)
--- NOTE | 2017-11-23 05:18 | History and Physical Report ---
CHIEF COMPLAINT: Shortness of breath. HISTORY OF PRESENT ILLNESS: The patient is a 67-year-old female with end-stage renal disease, on dialysis, presenting with shortness of breath. The patient has been having this symptom for the past 24-36 hours, symptom of shortness of breath is worse with exertion and improves with rest and is associated with cough but no chest pain. There is no history of fever or chills and no history of nausea or vomiting. The patient presented for evaluation. PAST MEDICAL HISTORY: Pertinent for hypertension, diabetes mellitus, gastroesophageal reflux disease, end-stage renal disease, on dialysis on Tuesdays, , and Saturdays. Also, the patient has past history of arteritis and blindness. PAST SURGICAL HISTORY: Pertinent for right breast surgery and left upper arm graft with left lobectomy. FAMILY HISTORY: Noncontributory. SOCIAL HISTORY: The patient does not smoke, does not drink alcohol, and does not use illicit drugs. MEDICATIONS: The patient is on aspirin 81 mg daily, calcitriol 0.25 mcg by mouth daily, calcium with vitamin D 600 with 800 mg of vitamin B one by mouth daily, darbepoetin kirit in polysorbate 60 mcg injection once every week, Nexium 20 mg by mouth daily, Neurontin 300 mg by mouth at bedtime, letrozole or Femara 2.5 mg by mouth daily, lisinopril 40 mg by mouth daily, mirtazapine, Remeron 30 mg by mouth at bedtime, Zofran 4 mg by mouth every day as needed for nausea and vomiting, amlodipine 10 mg by mouth daily, hydralazine 100 mg by mouth every 8 hours, Zithromax Z-Chandrakant to be taken as directed. ALLERGIES: There are no known drug allergies. REVIEW OF SYSTEMS: CONSTITUTIONAL: There is no fever, no chills, no diaphoresis. HEENT: There is no headache or sore throat. CARDIOVASCULAR: There is no chest pain or orthopnea. RESPIRATORY: Shortness of breath is present and cough is present. GASTROINTESTINAL: There is no nausea, no vomiting, no abdominal pain, diarrhea, or constipation. NEUROLOGICAL: There is no numbness, no dizziness, no altered mental status. MUSCULOSKELETAL: There is no joint pain or swelling. DERMATOLOGIC: There is no skin rash or itching. GENITOURINARY: There is dysuria but no hematuria or flank pain. Rest of system review is normal. PHYSICAL EXAMINATION: GENERAL: At the time of exam, the patient was found to be alert, oriented x 3, and not in acute distress. VITAL SIGNS: At the time of initial presentation shows temperature of 98.7 degrees Fahrenheit, pulse of 66, respiration 26, blood pressure 170/71, O2 sat of 93% on room air. HEENT: Show pupils to be equal, round, reactive to light and accommodation. Extraocular muscles are intact. NECK: Supple with no JVD or carotid bruit. CARDIOVASCULAR: Show normal first and second heart sounds with no gallops or murmurs. RESPIRATORY: Show reduced air entry on both sides of the lungs with no abnormal breath sounds. GASTROINTESTINAL SYSTEM: Show abdomen to be full, soft, nontender with no organomegaly or rigidity. NEUROLOGIC: Show no focal deficit. MUSCULOSKELETAL: Show no joint swelling or tenderness. DERMATOLOGICAL: Show no skin rash. GENITOURINARY: Showing no costovertebral angle tenderness. PERTINENT LABORATORY AND IMAGING STUDIES: The patient had chest x-ray done that shows pulmonary edema. Also, the chest x-ray showed cardiomegaly. The patient's lab results show CBC with normal white count, normal hemoglobin, and normal hematocrit with CBC differential showing slightly elevated segmented neutrophil of 75.7%. The patient's coagulation studies were unremarkable. The patient's ABG showed normal pH with elevated pCO2 of 48.7 and low pO2 of 70, and this was done on FiO2 of 40. The patient's chemistry shows elevated BUN of 29 and elevated creatinine of 4.7 consistent with end-stage renal disease. The patient's brain natriuretic peptide level is 12,489. DIAGNOSES: 1. Pulmonary edema. 2. End-stage renal disease, on dialysis. PLAN: 1. The patient will be admitted to medical floor. 2. The patient will be on albuterol nebulizer 2.5 mg q. 6 hours as needed for shortness of breath. 3. The patient will continue Nephrology consult with Dr. Moses Son ordered by the Emergency Room physician: 4. The patient will be on p.r.n. medications like Tylenol 650 mg by mouth every 4 hours for fever and headache and will also be on IV Zofran 4 mg every 8 hours as needed for nausea and vomiting. 5. The patient's diet will be consisting of carbohydrate, low sodium diet. The patient will be on Accu-Chek a.c. and at bedtime, followed by low-dose sliding scale using regular insulin coverage subcutaneously. 6. The patient will be on sequential compressive device and also heparin 5000 units subcutaneously q. 12 for DVT prophylaxis. 7. The patient will be on home medication as shown in the medication reconciliation section. Further management of the patient's symptoms will be dependent on nephrology consult with possible dialysis that will take place in the morning. JOB# [id number] OCN/NTS
[2017-11-23] MEDS: APRESOLINE PO SCH ×3 (06:31→22:32)
[2017-11-23] MEDS: HumuLIN R SUB-Q SCH ×4 (07:30→22:31)
[2017-11-23] MEDS: ZOFRAN IV PRN ×2 (09:07→22:37)
[2017-11-23] MEDS ORDERED: CALCIUM VIT D3 PO SCH (10:00)
[2017-11-23] MEDS: HALFPRIN EC PO SCH (11:34)
[2017-11-23] MEDS: PROTONIX PO SCH (11:35)
[2017-11-23] MEDS: ZESTRIL PO SCH (11:35)
[2017-11-23] MEDS: ROCALTROL PO SCH (11:35)
[2017-11-23] MEDS: OSCAL PO SCH (11:35)
[2017-11-23] MEDS: NORVASC PO SCH (11:35)
[2017-11-23] MEDS: HEPARIN SUB-Q SCH ×2 (11:36→22:33)
[2017-11-23] MEDS: ZITHROMAX PO SCH (11:36)
[2017-11-23] MEDS ORDERED: NACL 0.9% 100 ML IV PRN (11:52)
--- NOTE | 2017-11-23 11:54 | Consultation ---
History of Present Illness - Reason for Consult Consult date: 11/23/17 end stage renal disease, other (volume overload) - History of Present Illness The patient is a 67 YO AAF with medical history significant for Hypertension, Diabetes mellitus type 2, bilateral blindness, Anemia and ESRD on hemodialysis ( TTS) who came to the ER with complaints of worsening shortness of breath. History was mostly obtained from her at the bedside. She developed difficulty in breathing 2 days ago and gotten worse yesterday. Associated symptoms include dry cough. She had one episode of vomiting 2 days ago. No h/ o cp, hemoptysis, dizziness, weakness, diaphoresis, fever, chills, leg swelling , orthopnea, abd pain, rash or syncope. She gets outpatient hemodialysis at [facility], last dialyzed 2 days ago. CXR on admission showed pulmonary edema. Past History Past Medical History: anemia, diabetes, dialysis, ESRD, hypertension, other ( GERD, blindness) Medications and Allergies Allergies Allergy/AdvReac Type Severity Reaction Status Date / Time No Known Allergies Allergy Verified 07/10/16 08:46 Home Medications Medication Instructions Recorded Confirmed Last Taken Type Aspirin 81 mg QDAY 07/22/17 11/23/17 1 Day Ago History ~07/21/17 Calcitriol [Rocaltrol] 0.25 mcg PO QDAY 07/22/17 11/23/17 1 Day Ago History ~07/21/17 Calcium 600-Vit D3 800 Caplet 1 tab QDAY 07/22/17 11/23/17 1 Day Ago History ~07/21/17 Esomeprazole Magnesium [Nexium 20 mg PO QDAY 07/22/17 11/23/17 1 Day Ago History 24Hr] ~07/21/17 Gabapentin [Neurontin] 300 mg PO QHS 07/22/17 11/23/17 2 Days Ago History ~07/20/17 Letrozole (Nf) [Femara (Nf)] 2.5 mg PO QDAY 07/22/17 11/23/17 1 Day Ago History ~07/21/17 Lisinopril [Zestril] 40 mg PO QDAY 07/22/17 11/23/17 1 Day Ago History ~07/21/17 Mirtazapine [Remeron] 30 mg PO QHS 07/22/17 11/23/17 2 Days Ago History ~07/20/17 Ondansetron [Zofran TAB] 4 mg PO QDAY PRN 07/22/17 11/23/17 2 Days Ago History ~07/20/17 amLODIPine 10 mg QDAY 07/22/17 11/23/17 1 Day Ago History ~07/21/17 hydrALAZINE 100 mg Q8HR 07/22/17 11/23/17 1 Day Ago History ~07/21/17 Carvedilol [Coreg] 25 mg PO BID 11/23/17 11/23/17 Unknown History Active Meds: Active Medications Acetaminophen (Tylenol) 650 mg PO Q4H PRN PRN Reason: Fever >101 Albuterol (Proventil) 2.5 mg IH Q6HRT PRN PRN Reason: Shortness Of Breath Amlodipine Besylate (Norvasc) 10 mg PO QDAY [facility] Last Admin: 11/23/17 11:35 Dose: 10 mg Aspirin (Halfprin Ec) 81 mg PO QDAY [facility] Last Admin: 11/23/17 11:34 Dose: 81 mg Azithromycin (Zithromax) 250 mg PO DAILY [facility] Last Admin: 11/23/17 11:36 Dose: 250 mg Calcitriol (Rocaltrol) 0.25 mcg PO QDAY [facility] Last Admin: 11/23/17 11:35 Dose: 0.25 mcg Calcium Carbonate/Glycine (Oscal) 1,250 mg PO QAM [facility] Last Admin: 11/23/17 11:35 Dose: 1,250 mg Cholecalciferol (Vitamin D3) 800 unit PO QDAY [facility] Dextrose (D50w (25gm) Syringe) 50 ml IV PRN PRN PRN Reason: Hypoglycemia Gabapentin (Neurontin) 300 mg PO QHS [facility] Heparin Sodium (Porcine) (Heparin) 5,000 unit SUB-Q Q12HR [facility] Last Admin: 11/23/17 11:36 Dose: 5,000 unit Hydralazine HCl (Apresoline) 100 mg PO Q8HR [facility] Last Admin: 11/23/17 06:31 Dose: Not Given Insulin Human Regular (Humulin R) 0 units SUB-Q [facility]; Protocol Last Admin: 11/23/17 07:30 Dose: Not Given Insulin Human Regular ([facility] R) [facility]; Protocol Lisinopril (Zestril) 40 mg PO QDAY [facility] Last Admin: 11/23/17 11:35 Dose: 40 mg Mirtazapine (Remeron) 30 mg PO QHS [facility] Miscellaneous Medication (Letrozole (Nf)) 2.5 mg PO QDAY [facility] Ondansetron HCl (Zofran) 4 mg IV Q8H PRN PRN Reason: Nausea And Vomiting Last Admin: 11/23/17 09:07 Dose: 4 mg Pantoprazole Sodium (Protonix) 20 mg PO QDAY [facility] Last Admin: 11/23/17 11:35 Dose: 20 mg Review of Systems Constitutional: no weight loss, no weight gain, no fever, no chills Breasts: deferred Cardiovascular: shortness of breath, dyspnea on exertion, high blood pressure, no chest pain, no orthopnea, no palpitations, no edema, no syncope, no leg edema Respiratory: cough, shortness of breath, dyspnea on exertion, no hemoptysis, no home oxygen Gastrointestinal: nausea, vomiting, no abdominal pain, no diarrhea, no melena, no jaundice Genitourinary Female: no dysuria, no hematuria Musculoskeletal: no neck stiffness, no low back pain, no redness of joints Integumentary: no rash, no wounds, no jaundice Neurological: no transient paralysis, no paralysis, no seizures, no syncope, no headaches, no change in speech, no change in mentation, no confusion Exam - Vital Signs Vital signs: Vital Signs Temp Pulse Resp BP Pulse Ox 98.7 F 66 26 H 170/71 93 11/23/17 00:25 11/23/17 00:25 11/23/17 00:25 11/23/17 00:25 11/23/17 00:25 - General Appearance General appearance: well-developed, well-nourished, appears stated age, other ( not in distress) EENT: ATNC, mucous membranes moist, hearing intact Neck: Present: neck supple, trachea midline Respiratory: Rales Heart: regular, normal heart rate, S1S2 Gastrointestinal: Present: normoactive bowel sounds. Absent: tenderness Integumentary: no rash, warm and dry Neurologic: no asterixis, other (bilateral blindness) Musculoskeletal: Present: other (no edema, left arm AVF) Psychiatric: cooperative Results - Lab Results 11/23/17 01:07 11/23/17 01:07 Most recent lab results Calcium 9.6 mg/dL (8.4-10.2) 11/23/17 01:07 Assessment and Plan 1. Volume overload: 3-4 Lts of Ultrafiltration today with hemodialysis as tolerated. Low salt diet. Need to adjust her dry weight. 2. ESRD: Continue hemodialysis three times a week. 3. Anemia: Epogen as needed. 4. Hypertension: Monitor BP. UF with HD today. 5. DM-2.
[2017-11-23] MEDS ORDERED: NACL 0.9 (PRIMING MACHINE ONLY DIALYSIS) MC ONE (15:22)
[2017-11-23] MEDS: VITAMIN D3 PO SCH (15:36)
--- NOTE | 2017-11-23 19:02 | Event Note ---
Date: 11/23/17 Very pleasant 67-year-old female patient with multiple medical problems was admitted this morning With worsening shortness of breath, nephrology evaluated, scheduled for hemodialysis today Patient seen and evaluated, medical records reviewed, agree with the current management Possible discharge in 1-2 days if stable Plan of care reviewed with the patient and the family member at the bedside
[2017-11-23] MEDS: REMERON PO SCH (22:32)
[2017-11-23] MEDS: NEURONTIN PO SCH (22:32)
[2017-11-24] MEDS ORDERED: APRESOLINE PO ONE (05:45)
[2017-11-24] MEDS: APRESOLINE PO SCH ×3 (05:46→22:28)
[2017-11-24] MEDS: HumuLIN R SUB-Q SCH ×4 (08:24→22:25)
--- NOTE | 2017-11-24 09:02 | Progress Note ---
Assessment and Plan 1. Volume overload: Improved after Ultrafiltration yesterday with hemodialysis. Low salt diet. 2. ESRD: Continue hemodialysis three times a week. 3. Anemia: Epogen as needed. 4. Hypertension: Monitor BP. 5. DM-2. Subjective Date of service: 11/24/17 Interval history: Patient is feeling better. Objective - Vital Signs Vital signs: Vital Signs - 12hr 11/23/17 11/23/17 11/23/17 22:00 22:36 23:36 Temperature Pulse Rate Respiratory 18 19 17 Rate Respiratory 18 Rate [Medial Back] Blood Pressure O2 Sat by Pulse 96 Oximetry 11/23/17 11/24/17 11/24/17 23:44 05:36 05:55 Temperature 99.2 F 98.9 F Pulse Rate 68 54 L 55 L Respiratory 18 20 Rate Respiratory Rate [Medial Back] Blood Pressure 155/70 159/58 159/58 O2 Sat by Pulse 98 98 Oximetry - General Appearance General appearance: well-developed, well-nourished, appears stated age, other ( no tin distress) EENT: ATNC, hearing intact Neck: supple Respiratory: Present: Clear to Ascultation Cardiology: regular, S1S2, no murmurs Gastrointestinal: normoactive bowel sounds, no tenderness Integumentary: no rash, warm and dry Neurologic: no asterixis, other (bilateral blindness) Musculoskeletal: other (no edema, left arm AVF) Psychiatric: cooperative - Lab 11/23/17 01:07 11/23/17 01:07 Most recent lab results Calcium 9.6 mg/dL (8.4-10.2) 11/23/17 01:07
[2017-11-24] MEDS: ZOFRAN IV PRN ×2 (09:16→20:30)
[2017-11-24] MEDS: ROCALTROL PO SCH (09:26)
[2017-11-24] MEDS: ZITHROMAX PO SCH (09:27)
[2017-11-24] MEDS: ZESTRIL PO SCH (09:27)
[2017-11-24] MEDS: OSCAL PO SCH (09:27)
[2017-11-24] MEDS: HALFPRIN EC PO SCH (09:27)
[2017-11-24] MEDS: PROTONIX PO SCH (09:27)
[2017-11-24] MEDS: NORVASC PO SCH (09:32)
[2017-11-24] MEDS: VITAMIN D3 PO SCH (09:33)
[2017-11-24] MEDS: HEPARIN SUB-Q SCH ×2 (09:35→22:28)
[2017-11-24] MEDS ORDERED: AFLURIA QUAD 2018-2019 SYRINGE IM ONE (12:00)
--- NOTE | 2017-11-24 16:37 | Progress Note ---
Assessment and Plan Assessment and plan: --End-stage renal disease; on hemodialysis Nephrology following, dialysis per schedule --Hypertension; moderate control, continue current antihypertensive When necessary medications --Peripheral neuropathy and continue gabapentin Supportive care --DVT prophylaxis; heparin and renal dose Closely monitor the patient and adjust management as needed Possible discharge in 1-2 days if stable; History Interval history: Patient seen and examined medical records reviewed Patient feels slightly better no new complaintstient , Has mild nausea intermittently Vital signs reviewed Hospitalist Physical - Constitutional Vitals: Temp Pulse Resp BP Pulse Ox 98.9 F 55 L 20 158/62 98 11/24/17 05:36 11/24/17 05:55 11/24/17 05:36 11/24/17 09:32 11/24/17 05:36 General appearance: Present: no acute distress, well-nourished - EENT Eyes: Present: PERRL, EOM intact - Neck Neck: Present: supple, normal ROM - Respiratory Respiratory effort: normal Respiratory: bilateral: diminished, negative: rales, rhonchi, wheezing - Cardiovascular Rhythm: regular Heart Sounds: Present: S1 & S2 - Extremities Extremities: no ischemia, No edema - Abdominal General gastrointestinal: soft, non-tender, non-distended, normal bowel sounds - Integumentary Integumentary: Present: clear, warm - Psychiatric Psychiatric: appropriate mood/affect, cooperative - Neurologic Neurologic: moves all extremities, other (legally blind) Results - Labs CBC & Chem 7: 11/23/17 01:07 11/23/17 01:07 Labs: Laboratory Last Values WBC 9.1 K/mm3 (4.5-11.0) 11/23/17 01:07 RBC 3.56 M/mm3 (3.65-5.03) L 11/23/17 01:07 Hgb 10.2 gm/dl (10.1-14.3) 11/23/17 01:07 Hct 31.7 % (30.3-42.9) 11/23/17 01:07 MCV 89 fl (79-97) 11/23/17 01:07 MCH 29 pg (28-32) 11/23/17 01:07 MCHC 32 % (30-34) 11/23/17 01:07 RDW 15.7 % (13.2-15.2) H 11/23/17 01:07 Plt Count 92 K/mm3 (140-440) L 11/23/17 01:07 Lymph % (Auto) 7.8 % (13.4-35.0) L 11/23/17 01:07 [place] % (Auto) 2.9 % (0.0-7.3) 11/23/17 01:07 Eos % (Auto) 12.9 % (0.0-4.3) H 11/23/17 01:07 Baso % (Auto) 0.7 % (0.0-1.8) 11/23/17 01:07 Lymph # 0.7 K/mm3 (1.2-5.4) L 11/23/17 01:07 [place] # 0.3 K/mm3 (0.0-0.8) 11/23/17 01:07 Eos # 1.2 K/mm3 (0.0-0.4) H 11/23/17 01:07 Baso # 0.1 K/mm3 (0.0-0.1) 11/23/17 01:07 Seg Neutrophils % 75.7 % (40.0-70.0) H 11/23/17 01:07 Seg Neutrophils # 6.9 K/mm3 (1.8-7.7) 11/23/17 01:07 PT 15.7 Sec. (12.2-14.9) H 11/23/17 01:07 INR 1.20 (0.87-1.13) H 11/23/17 01:07 APTT 30.3 Sec. (24.2-36.6) 11/23/17 01:07 POC ABG pH 7.408 (7.35-7.45) 11/23/17 01:17 POC ABG pCO2 48.5 (35-45) H 11/23/17 01:17 POC ABG pO2 70 (80-105) L 11/23/17 01:17 POC ABG HCO3 30.6 11/23/17 01:17 POC ABG Total CO2 32 11/23/17 01:17 POC ABG O2 Sat 94 11/23/17 01:17 POC ABG Base Excess 6 11/23/17 01:17 FiO2 40 % 11/23/17 01:17 Sodium 144 mmol/L (137-145) 11/23/17 01:07 Potassium 4.5 mmol/L (3.6-5.0) 11/23/17 01:07 Chloride 102.1 mmol/L (98-107) 11/23/17 01:07 Carbon Dioxide 24 mmol/L (22-30) 11/23/17 01:07 Anion Gap 22 mmol/L 11/23/17 01:07 BUN 29 mg/dL (7-17) H 11/23/17 01:07 Creatinine 4.7 mg/dL (0.7-1.2) H 11/23/17 01:07 Estimated GFR 11 ml/min 11/23/17 01:07 BUN/Creatinine Ratio 6 % 11/23/17 01:07 Glucose 179 mg/dL (65-100) H 11/23/17 01:07 POC Glucose 109 (70-105) H 11/24/17 16:28 Calcium 9.6 mg/dL (8.4-10.2) 11/23/17 01:07 NT-Pro-B Natriuret Pep 10292 pg/mL (0-900) H 11/23/17 01:07
[2017-11-24] MEDS: LETROZOLE 2.5 MG PO SCH (20:23)
[2017-11-24] MEDS: REMERON PO SCH (22:27)
[2017-11-24] MEDS: NEURONTIN PO SCH (22:27)
[2017-11-25] MEDS: APRESOLINE PO SCH ×2 (05:43→14:19)
--- NOTE | 2017-11-25 07:29 | Progress Note ---
Assessment and Plan 1. Volume overload: Improved after Ultrafiltration with hemodialysis. Low salt diet. 2. ESRD: Continue hemodialysis three times a week, TTS schedule. 3. Anemia: Epogen as needed. 4. Hypertension: Monitor BP. 5. DM-2. Subjective Date of service: 11/25/17 Interval history: Patient is feeling better. Objective - Vital Signs Vital signs: Vital Signs - 12hr 11/24/17 11/24/17 11/25/17 22:00 23:42 05:29 Temperature 98.5 F 98.4 F Pulse Rate 65 Respiratory 19 20 20 Rate Respiratory 18 Rate [Medial Back] Blood Pressure 151/51 154/62 O2 Sat by Pulse 95 97 Oximetry 11/25/17 06:11 Temperature 97.9 F Pulse Rate 65 Respiratory 19 Rate Respiratory Rate [Medial Back] Blood Pressure 181/67 O2 Sat by Pulse 98 Oximetry - General Appearance General appearance: well-developed, well-nourished, appears stated age, other ( not in distress) EENT: ATNC, hearing intact Neck: supple Respiratory: Present: Clear to Ascultation Cardiology: regular, S1S2, no murmurs Gastrointestinal: normoactive bowel sounds, no tenderness, no distended Integumentary: no rash, warm and dry Neurologic: no asterixis, other (bilateral blindness) Musculoskeletal: other (left arm AVF, no edema) Psychiatric: cooperative - Lab 11/23/17 01:07 11/23/17 01:07 Most recent lab results Calcium 9.6 mg/dL (8.4-10.2) 11/23/17 01:07
[2017-11-25] MEDS: HumuLIN R SUB-Q SCH ×3 (08:21→17:30)
[2017-11-25] MEDS: OSCAL PO SCH (10:55)
[2017-11-25] MEDS: ROCALTROL PO SCH (10:56)
[2017-11-25] MEDS: ZITHROMAX PO SCH (10:56)
[2017-11-25] MEDS: NORVASC PO SCH (10:56)
[2017-11-25] MEDS: ZESTRIL PO SCH (10:56)
[2017-11-25] MEDS: LETROZOLE 2.5 MG PO SCH (10:57)
[2017-11-25] MEDS: HALFPRIN EC PO SCH (10:57)
[2017-11-25] MEDS: VITAMIN D3 PO SCH (10:57)
[2017-11-25] MEDS: PROTONIX PO SCH (10:57)
[2017-11-25] MEDS: HEPARIN SUB-Q SCH (10:59)
[2017-11-25] MEDS: ZOFRAN IV PRN (12:48)
--- NOTE | 2017-11-25 13:11 | Discharge Summary ---
Providers - Providers Date of Admission: 11/23/17 03:22 Date of discharge: 11/25/17 Attending physician: JUDI ESPARZA 11/23/17 02:12 Consult to Physician [CONS] Stat Comment: Consulting Provider: ELLEN BREWER Physician Instructions: Reason For Exam: acute pulmonary edema, need dialysis Primary care physician: [facility] Hospitalization Condition: Serious Disposition: DC-01 TO HOME OR SELFCARE Time spent for discharge: 32 min Core Measure Documentation - Palliative Care Palliative Care/ Comfort Measures: Not Applicable - Core Measures Any of the following diagnoses?: none Exam - Constitutional Vitals: Temp Pulse Resp BP Pulse Ox 97.9 F 71 19 170/70 98 11/25/17 06:11 11/25/17 10:56 11/25/17 06:11 11/25/17 10:56 11/25/17 06:11 General appearance: Present: no acute distress, well-nourished - EENT Eyes: Present: PERRL, EOM intact - Neck Neck: Present: supple, normal ROM - Respiratory Respiratory effort: normal Respiratory: negative: rales, rhonchi, wheezing - Cardiovascular Rhythm: regular Heart Sounds: Present: S1 & S2 - Extremities Extremities: no ischemia, No edema - Abdominal General gastrointestinal: Present: soft, non-tender, non-distended, normal bowel sounds - Integumentary Integumentary: Present: clear, warm - Musculoskeletal Musculoskeletal: strength equal bilaterally - Psychiatric Psychiatric: appropriate mood/affect, cooperative - Neurologic Neurologic: moves all extremities, other (legally blind) Plan Activity: advance as tolerated, fall precautions Diet: renal Additional Instructions: Fall precautions. Follow renal/hemodialysis per schedule Follow up with: SILVIANO STRICKLAND MD [Primary Care Provider] - 3-5 Days ELLEN BREWER MD [Staff Physician] - 7 Days Prescriptions: Ondansetron [Zofran TAB] 4 mg PO TID PRN #15 tablet PRN Reason: Nausea And Vomiting
[2017-11-25 14:20] VITALS: BP 185/76
== END 2017-11-25 18:00 | disposition home or self-care (01) | DRG 682 ==
LOC: ED 00:13 → 3A 03:22
PROVIDERS: ADMIT Internal Medicine; ATTEND Internal Medicine
PROC: 5A1D70Z Performance of Urinary Filtration, Intermittent, Less than 6 Hours Per Day (ICD-10-PCS; principal; 2017-11-23)
DX: I12.0 Hypertensive chronic kidney disease with stage 5 chronic kidney disease or end stage renal disease (principal); J81.0 Acute pulmonary edema; N18.6 End stage renal disease; E11.22 Type 2 diabetes mellitus with diabetic chronic kidney disease; D63.1 Anemia in chronic kidney disease; H54.8 Legal blindness, as defined in USA; E87.70 Fluid overload, unspecified; E11.42 Type 2 diabetes mellitus with diabetic polyneuropathy; K21.9 Gastro-esophageal reflux disease without esophagitis; Z95.828 Presence of other vascular implants and grafts; Z79.899 Other long term (current) drug therapy; Z79.82 Long term (current) use of aspirin; Z79.84 Long term (current) use of oral hypoglycemic drugs; Z99.2 Dependence on renal dialysis
CPT/HCPCS: 36415; 71045; 80048; 82803; 82962; 83880; 85025; 85610; 85730; 90686; 93005; 93010; J1644; J1940; J2405; J7030